=== PATIENT | female | born 1935 | race African-American/Black ===

== ENCOUNTER 2018-01-26 13:40 | Observation (INO) ==
[2018-01-26 14:31] LABS: Basophils % 0.2 %; Eosinophils # 0.1 K/mcL (0.0-0.6); Eosinophils % 1.2 %; Hematocrit 33.5 % (35.3-44.9); Immature Granulocytes % 0.5 % (0-4); Lymphocytes % 10.1 %; Mean Corpuscular HGB Conc 29.9 g/dL (31.6-35.5); Mean Corpuscular Hemoglobin 29.8 pg (28.0-33.3); Mean Corpuscular Volume 99.7 fL (83.0-100.0); Mean Platelet Volume 9.4 fL (9.4-12.4); Monocytes # 0.7 K/mcL (0.0-1.3); Monocytes % 7.2 %; Neutrophils # 8.2 K/mcL (1.6-8.9); Platelet Count 255 K/mcL (140-400); Red Blood Count 3.36 M/mcL (3.82-4.97); Red Cell Distribution Width 15.6 % (11.5-14.5); Segmented Neutrophils % 80.8 %
--- NOTE | 2018-01-26 14:38 | Emergency Department Note ---
Disposition Clinical Impression: Generalized weakness, Palpitations Anemia Qualifiers: Anemia type: unspecified type Qualified Code(s): D64.9 - Anemia, unspecified Disposition: Admitted As Inpatient Condition: Fair Referrals: Jose Alejandro Munoz MD [Primary Care Provider] - Forms: ED Satisfaction Letter Time of Disposition: 16:59 General Adult HPI - General Chief complaint: ED Weakness Stated complaint: afrib, weakness Time Seen by Provider: 01/26/18 13:53 Source: patient, EMS Mode of arrival: EMS Limitations: no limitations Nursing Notes Reviewed: Yes Vital Signs Reviewed: Yes - History of Present Illness HPI Narrative: 82 yo female with history of A. fib, CHF, CAD presents for evaluation of generalized weakness and fast heart rate. Patient was checked on by her home health nursing staff prior to arrival. States the patient's heart rate was fast. Patient denied any symptoms at that time. Patient will health nurses also concerned about the patient's generalized weakness. Patient currently denies any fevers. No chest pain or shortness of breath. Patient denies any abdominal pain. Patient states she has been having lower leg edema which is not new. States that she was recently evaluated by her primary care doctor within the past few days. They are recommending compression stockings. Pain Scale: 0 - Related Data Home Medications Medication Instructions Recorded Confirmed Nitroglycerin [Nitrostat] 0.4 mg SL AD PRN 04/28/15 01/26/18 Atorvastatin [Lipitor] 40 mg PO DAILY 01/26/18 01/26/18 Celecoxib [Celebrex] 200 mg PO DAILY 01/26/18 01/26/18 Furosemide [Lasix] 20 mg PO DAILY 01/26/18 01/26/18 Hydromorphone (Pf) [Hydromorphone 1 each IT AD 01/26/18 01/26/18 Intrathecal Pump] Isosorbide MONOnitrate (24 HR) 30 mg PO DAILY 01/26/18 01/26/18 [Imdur] Levothyroxine Sodium 25 mcg PO DAILY 01/26/18 01/26/18 [Levothyroxine Sodium] Losartan Potassium [Cozaar] 100 mg PO DAILY 01/26/18 01/26/18 Pantoprazole Sodium [Pantoprazole 40 mg PO DAILY 01/26/18 01/26/18 Sodium] Potassium Chloride 20 meq PO DAILY 01/26/18 01/26/18 amLODIPine [Norvasc] 5 mg PO DAILY 01/26/18 01/26/18 hydroCHLOROthiazide 12.5 mg PO DAILY 01/26/18 01/26/18 [Hydrochlorothiazide] Previous Rx's Medication Instructions Recorded Aspirin 81 mg PO DAILY tab.chew 05/01/15 Allergies Allergy/AdvReac Type Severity Reaction Status Date / Time No Known Allergies Allergy Verified 01/26/18 15:04 All systems ED: reviewed and negative except as stated. Constitutional: Denies: fever Cardiovascular: Denies: chest pain Respiratory: Denies: cough, dyspnea Gastrointestinal: Denies: abdominal pain, nausea, vomiting Past Medical History - Past Medical History Source: patient Medical history: Reports: arthritis, CHF, coronary artery disease, hyperlipidemia, myocardial infarction Surgical history: Reports: appendectomy, cholecystectomy, hip replacement, hysterectomy, knee replacement Psychiatric history: Reports: no psych history - Social History Smoking Status: Never smoker Smokeless Tobacco Status: No Alcohol use: Reports: none Drug use: Reports: none Physical Exam - General Limitations: no limitations General appearance: alert, in no apparent distress - Head Head exam: atraumatic, normocephalic, normal inspection - Eye Eye exam: Present: normal appearance, EOMI - ENT ENT exam: normal exam, mucous membranes moist - Neck Neck exam: Present: normal inspection, trachea midline - Chest Chest inspection: Present: normal inspection, symmetric chest wall rise - Respiratory Respiratory exam: Present: normal lung sounds bilaterally. Absent: respiratory distress - Cardiovascular Cardiovascular exam: Present: regular rate, normal rhythm. Absent: systolic murmur - Abdominal Exam Abdominal exam: Present: soft, distention. Absent: guarding, rebound - Extremities Exam Extremities exam: Present: normal inspection, pedal edema (2-3 + PEDAL edema) - Back Exam Back exam: Present: normal inspection - Neurological Exam Neurological exam: Present: alert, oriented X3, CN II-XII intact - Skin Skin exam: Present: warm, dry, intact, normal color Course Course Narrative: Patient is a symptomatic. Patient will get basic cardio pulmonary screening evaluation. Concerns the patient possibly had a run of A. fib prior to arrival. Patient is also appears generally weak. Disposition likely be admission. - Reevaluation(s) Reevaluation #1: Patient seen and examined. Patient's updated on plan of care. Resting currently. Patient states that would be willing to stay. Our concern is that she possibly had a cardiac event earlier today would likely need serial troponins and observation. Time: 16:15 Vital Signs Temperature 98.8 F 01/26/18 13:42 Pulse Rate 92 01/26/18 13:42 Respiratory Rate 16 01/26/18 13:42 Blood Pressure 140/82 01/26/18 13:42 O2 Sat by Pulse Oximetry 98 01/26/18 13:42 Temperature 98.8 F 01/26/18 13:42 Pulse Rate 78 01/26/18 14:54 Respiratory Rate 16 01/26/18 14:54 Blood Pressure 120/85 01/26/18 14:54 O2 Sat by Pulse Oximetry 96 01/26/18 14:54 Oxygen Delivery Oxygen Delivery Room Air Medical Decision Making - MDM Narrative Medical decision making narrative: Patient presents for concerns of generalized weakness as well as possible tachycardia. Noted at the nursing staff at her home residence. Patient's arteries been stable in the ED. Patient currently denies any symptoms. However given the concern the patient's nursing staff at home as well as age with comorbidities. Patient would benefit from further inpatient observation with cardiac monitoring. Patient's chest x-ray shows no acute disease. Urine is negative. Patient will be admitted. Family at bedside agrees with plan of care. - Lab Data Lab results reviewed: Yes I reviewed the patient's lab results. Result diagrams: 01/26/18 14:15 01/26/18 14:15 Lab Results 01/26/18 01/26/18 01/26/18 Range/Units 14:15 14:15 14:15 WBC 10.1 (4.3-11.1) K/mcL RBC 3.36 L (3.82-4.97) M/mcL Hgb 10.0 L (11.5-15.4) g/dL Hct 33.5 L (35.3-44.9) % MCV 99.7 (83.0-100.0) fL MCH 29.8 (28.0-33.3) pg MCHC 29.9 L (31.6-35.5) g/dL RDW 15.6 H (11.5-14.5) % Plt Count 255 (140-400) K/mcL MPV 9.4 (9.4-12.4) fL Immature Gran % 0.5 (0-4) % Seg Neutrophils % 80.8 % Lymphocytes % 10.1 % Monocytes % 7.2 % Eosinophils % 1.2 % Basophils % 0.2 % Neutrophils # 8.2 (1.6-8.9) K/mcL Lymphocytes # 1.0 (0.6-4.6) K/mcL Monocytes # 0.7 (0.0-1.3) K/mcL Eosinophils # 0.1 (0.0-0.6) K/mcL Basophils # 0.0 (0.0-0.2) K/mcL Sodium 142 (136-145) mEq/L Potassium 4.0 (3.5-5.1) mEq/L Chloride 104 (98-107) mEq/L Carbon Dioxide 31 H (23-29) mEq/L BUN 27 H (8-23) mg/dL Creatinine 1.08 (0.60-1.20) mg/dL Est GFR ( Amer) 59 L (> 60) Est GFR (Non-Af Amer) 48 L (> 60) BUN/Creatinine Ratio 25 (6-26) Glucose 160 H (70-105) mg/dL Calculated Osmolality 303 H (280-300) Calcium 9.5 (8.6-10.3) mg/dL Total Bilirubin 0.6 (0.3-1.0) mg/dL AST 16 (13-39) Units/L ALT 15 (7-52) Units/L Alkaline Phosphatase 72 (34-104) Units/L Troponin I 0.03 (< 0.04) ng/mL B-Natriuretic Peptide 153 H (Less than 100) pg/mL Serum Total Protein 5.9 L (6.4-8.9) g/dL Albumin 3.5 (3.5-5.7) g/dL Globulin 2.4 (2.4-3.5) g/dL Albumin/Globulin Ratio 1.5 (1.1-2.2) TSH 3.675 (0.340-5.600) mcIU/mL Urine Color (Yellow) Urine Clarity (Clear) Urine pH (5.0-8.0) pH Units Ur Specific [place] (1.010-1.025) Urine Protein (Neg-Trace) mg/dL Urine Glucose (UA) (Normal) mg/dL Urine Ketones (Negative) mg/dL Urine Blood (Negative) Urine Nitrite (Negative) Urine Bilirubin (Negative) Urine Urobilinogen (Normal) mg/dL Ur Leukocyte Esterase (Negative) Ur Culture Indicated? (NO) 01/26/18 Range/Units 15:51 WBC (4.3-11.1) K/mcL RBC (3.82-4.97) M/mcL Hgb (11.5-15.4) g/dL Hct (35.3-44.9) % MCV (83.0-100.0) fL MCH (28.0-33.3) pg MCHC (31.6-35.5) g/dL RDW (11.5-14.5) % Plt Count (140-400) K/mcL MPV (9.4-12.4) fL Immature Gran % (0-4) % Seg Neutrophils % % Lymphocytes % % Monocytes % % Eosinophils % % Basophils % % Neutrophils # (1.6-8.9) K/mcL Lymphocytes # (0.6-4.6) K/mcL Monocytes # (0.0-1.3) K/mcL Eosinophils # (0.0-0.6) K/mcL Basophils # (0.0-0.2) K/mcL Sodium (136-145) mEq/L Potassium (3.5-5.1) mEq/L Chloride (98-107) mEq/L Carbon Dioxide (23-29) mEq/L BUN (8-23) mg/dL Creatinine (0.60-1.20) mg/dL Est GFR ( Amer) (> 60) Est GFR (Non-Af Amer) (> 60) BUN/Creatinine Ratio (6-26) Glucose (70-105) mg/dL Calculated Osmolality (280-300) Calcium (8.6-10.3) mg/dL Total Bilirubin (0.3-1.0) mg/dL AST (13-39) Units/L ALT (7-52) Units/L Alkaline Phosphatase (34-104) Units/L Troponin I (< 0.04) ng/mL B-Natriuretic Peptide (Less than 100) pg/mL Serum Total Protein (6.4-8.9) g/dL Albumin (3.5-5.7) g/dL Globulin (2.4-3.5) g/dL Albumin/Globulin Ratio (1.1-2.2) TSH (0.340-5.600) mcIU/mL Urine Color Yellow (Yellow) Urine Clarity Clear (Clear) Urine pH 7.0 (5.0-8.0) pH Units Ur Specific [place] 1.007 L (1.010-1.025) Urine Protein Negative (Neg-Trace) mg/dL Urine Glucose (UA) Normal (Normal) mg/dL Urine Ketones Negative (Negative) mg/dL Urine Blood Negative (Negative) Urine Nitrite Negative (Negative) Urine Bilirubin Negative (Negative) Urine Urobilinogen Normal (Normal) mg/dL Ur Leukocyte Esterase Negative (Negative) Ur Culture Indicated? NO (NO) - Radiology Data Radiology results reviewed: Yes I reviewed the patient's radiology results. Chest X-Ray 01/26/18 14:02 IMPRESSION: No acute process. Stable examination. D/ / Daryl Ortiz MD / Daryl Ortiz MD Interpreting Provider: Daryl Ortiz MD - EKG Data EKG #1 EKG attestation: Yes I reviewed and interpreted this EKG. EKG shows normal: sinus rhythm Rate: normal Rhythm: NSR Calvin/QRS: normal T wave inversions noted in: aVR Interpretation: no acute changes, nonspecific ST-T wave changes S.B.ARiddhiR. - S.B.A.RRiddhi Situation: Demographics Background: Presenting Complaint Assessment: Vital Signs, Course and respsone to treatment, Patient/Family Expectation Recommendation: Barrier(s) to disposition, Recommendation based on pending studies, treatments, or consults S.B.A.RRiddhi Report Given to: Dr. Chin BalderasADanilo Repor Time: 16:58 Attestation Statement - Attestation Attestation: Patient was seen with resident physician. I reviewed the history, physical, assessment and plan, and agree with the findings. I also personally evaluated this patient and had [id number] time with this patient. 82-year-old female presents to the emergency department at the request of her home healthcare nurse after finding her to be tachycardic. Patient states that she felt she had a rapid heart rate earlier in the day but is since resolved. She also had some weakness which again has since resolved. She currently states that she is asymptomatic. Review of systems as above remainder negative. His go exam patient is very frail appearing. ENT is unremarkable. Heart regular rhythm and rate. Vitals are stable. Lungs are clear. Abdomen soft nontender. Extremities unremarkable. Neurologically alert and oriented. Skin no obvious rashes. Psych patient appears normal. ED course EKG shows no tachycardia or atrial fibrillation. Labs are largely unremarkable. However considering the patient's age and this history of rapid heart rate we felt admission was indicated. She may have had a run of something that was noted by the home health care nurse and I am a little cautious about sending her back home without further workup. We contacted the hospitalist service agreed to accept the patient. Agree with resident physician assessment and plan.
[2018-01-26 14:50] LABS: Albumin 3.5 g/dL (3.5-5.7); Albumin/Globulin Ratio 1.5 (1.1-2.2); Bilirubin,Total 0.6 mg/dL (0.3-1.0); Calcium 9.5 mg/dL (8.6-10.3); Globulin 2.4 g/dL (2.4-3.5); Total Protein 5.9 g/dL (6.4-8.9); Troponin I 0.03 ng/mL (< 0.04)
[2018-01-26 15:03] LABS: Thyroid Stimulating Hormone 3.675 mcIU/mL (0.340-5.600)
[2018-01-26 16:03] LABS: Bilirubin,Urine Negative (Negative); Blood,Urine Negative (Negative); Clarity,Urine Clear (Clear); Color,Urine Yellow (Yellow); Glucose,Urine (UA) Normal (Normal); Ketones,Urine Negative (Negative); Leukocyte Esterase,Urine Negative (Negative); Nitrite,Urine Negative (Negative); Protein,Urine Negative (Neg-Trace); Specific Gravity,Urine 1.007 (1.010-1.025); Urobilinogen,Urine Normal (Normal)
[2018-01-26] MEDS ORDERED: Naloxone 0.4 MG/ML INJ IVP PRN (17:40)
[2018-01-26] MEDS ORDERED: Nitroglycerin 0.4 MG TAB.SUBL SL PRN (18:08)
--- NOTE | 2018-01-26 18:17 | Internal Med History&Physical ---
<AngellaSony Tejeda - Last Filed: 01/26/18 19:12> Date of Encounter: 01/26/18 Time of Encounter: 17:00 Internal Medicine - H&P: HPI Chief complaint: Heart palpitations Admitted From: Emergency Dept Plans for Post Hospital Care: Home History of present illness: Ms. Rvias is a 82 year old female w/PMH of arthritis, CHF, CAD, HLD, HTN, thyroid disease, and chronic back pain presents from the ED w/CC of heart palpitations and weakness today. Pts. home health nurse found pts. HR >130 and pt. weak this morning. Pt. states that weakness is nothing new and has not worsened. Concern for arrhythmia and not on anticoagulation. Saw PCP several days ago and recommendation was for compression stockings for pedal edema. On exam, pts. sx have resolved w/HR of 73, RR 18, BP 145/75, SpO2 97% on 2L, and temp of 97.4F. Patient denies recent illness, fever, chills, nausea, vomiting, changes in vision, headache, unusual bleeding, cough, chest congestion, abdominal pain, diarrhea, constipation, dizziness, lightheadedness, numbness, tingling, pre-syncope, or syncope. Past Med Surg Social Fam HX - Past Medical History Source: patient, old records reviewed, obtained from family Medical history: arthritis, CHF, coronary artery disease, hyperlipidemia, hypertension, myocardial infarction (Many years ago w/o stent placement), thyroid disease Additional medical history: "HEART PROBLEMS" Psychiatric history: no psych history - Past Surgical History Surgical History: appendectomy, cholecystectomy, hip replacement, hysterectomy, knee replacement Additional surgical history: PATIENT DOES NOT KNOW - Social History Smoking Status: Never smoker Smokeless Tobacco Status: No Alcohol use: none Drug use: none Current living situation: Home, With Family Activity Level: Uses cane/walker Recent Out of Country Travel Within the Last 8 Weeks: No Exposure or Possible Exposure to Illness During Travel: No - Family History Mother Adopted: No Family Member Ethnicity: Non- Living Status: Age at : 85 Cause of : Old age Hx Family Cardiac Disorders: Yes Father History Unknown: Yes Adopted: No Family Member Ethnicity: Non- Living Status: Cause of : Unknown Hx Family Cardiac Disorders: Yes Internal Medicine - H&P: Meds Nitroglycerin [Nitrostat] 0.4 mg SL AD PRN 04/28/15 [History] Aspirin 81 mg PO DAILY tab.chew 05/01/15 [Rx] Atorvastatin [Lipitor] 40 mg PO DAILY 01/26/18 [History] Celecoxib [Celebrex] 200 mg PO DAILY 01/26/18 [History] Furosemide [Lasix] 20 mg PO DAILY 01/26/18 [History] Hydromorphone (Pf) [Hydromorphone Intrathecal Pump] 1 each IT AD 01/26/18 [ History] Isosorbide MONOnitrate (24 HR) [Imdur] 30 mg PO DAILY 01/26/18 [History] Levothyroxine Sodium [Levothyroxine Sodium] 25 mcg PO DAILY 01/26/18 [History] Losartan Potassium [Cozaar] 100 mg PO DAILY 01/26/18 [History] Pantoprazole Sodium [Pantoprazole Sodium] 40 mg PO DAILY 01/26/18 [History] Potassium Chloride 20 meq PO DAILY 01/26/18 [History] amLODIPine [Norvasc] 5 mg PO DAILY 01/26/18 [History] hydroCHLOROthiazide [Hydrochlorothiazide] 12.5 mg PO DAILY 01/26/18 [History] 3 Allergy/AdvReac Type Severity Reaction Status Date / Time No Known Allergies Allergy Verified 01/26/18 15:04 All Systems PM: A 10-system review of systems was performed and is negative for pertinent findings except as documented above in the HPI. - Constitutional Constitutional: as per HPI, fatigue, weakness, no chills, no fever(s), no night sweats - EENT Eyes: no change in vision, no discharge, no pain, no photophobia Ears: no ear discharge, no ear pain, no tinnitus Nose, mouth and throat: no dysphagia, no nasal discharge, no neck pain, no sore throat - Breasts Breasts: as per HPI - Cardiovascular Cardiovascular ROS IM: as per HPI, edema (1+ bilateral pedal edema), irregular heart rhythm, no chest pain, no diaphoresis, no dyspnea, no lightheadedness, no palpitations, no syncope - Respiratory Respiratory: no cough, no dyspnea, no wheezing, no excessive phlegm production - Gastrointestinal Gastrointestinal: no abdominal pain, no diarrhea, no hematemesis, no hematochezia, no melena, no nausea, no vomiting - Genitourinary Genitourinary: no change in urinary stream, no dysuria, no flank pain, no hematuria Menstruation: as per HPI, post hysterectomy - Musculoskeletal Musculoskeletal ROS IM: as per HPI, arthralgias, back pain, no numbness, no tingling - Integumentary Integumentary IM: no rash, no unusual bruising - Neurological Neurological ROS: no confusion, no convulsions, no focal weakness, no numbness, no tingling, no tremor(s) - Psychiatric Psychiatric: as per HPI - Endocrine Endocrine IM: as per HPI - Hematologic/Lymphatic Hematologic/Lymphatic: no easy bruising - Allergic/Immunologic Allergic/Immunologic: as per HPI - Constitutional Vitals: Temp Pulse Resp BP Pulse Ox 97.4 F L 73 18 145/75 97 01/26/18 17:48 01/26/18 17:48 01/26/18 17:48 01/26/18 17:48 01/26/18 17:48 General appearance: Present: cooperative, A&O X 3, pleasant, no acute distress, underweight, answers questions appropriately - Head Head exam: Present: atraumatic, normocephalic - Eye Eye exam: Present: PERRL, conjuntiva pink, sclera anicteric Pupils: Present: PERRL - ENT ENT exam: Present: normal exam - Neck Neck exam general surgery: Present: normal inspection, supple, trachea midline. Absent: lymphadenopathy - Respiratory Respiratory exam: Present: CTAB. Absent: accessory muscle use, rales, rhonchi, wheezes - Cardiovascular Cardiovascular exam: Present: RRR, +S1, +S2. Absent: diastolic murmur, gallop, rubs, systolic murmur - GI/Abdominal GI/Abdominal exam: Present: normal bowel sounds, soft, no peritoneal signs. Absent: distended, tenderness - Rectal Rectal exam: Present: deferred - Additional comments: exam deferred. - Extremities Exam Extremities exam: Present: pedal edema (1+ bilateral pedal edema), warm, radial pulses palpable and symmetrical. Absent: calf tenderness, cyanotic - Back Exam Back exam: Present: normal inspection - Neurological Exam Neurological exam: Present: CN II-XII intact, oriented X3, no focal deficits. Absent: pronater drift, facial droop, speech deficit - Psychiatric Psychiatric exam: Present: normal affect, normal mood - Skin Skin exam: Present: dry, intact Internal Med - H&P Results - Labs CBC & Chem 7: 01/26/18 14:15 01/26/18 14:15 - EKG Data EKG shows normal: sinus rhythm - EKG Data Prior EKG available for review: yes EKG comments: 01/26/18 18:29 EKG dated 01/11/18 shows sinus rhythm with occasional supraventricular premature complexes, marked left axis deviation, minimal voltage criteria for LVH (consider normal variant), anteroseptal myocardial infarction of indeterminate age, and poor R-wave progression. EKG dated 01/26/18 shows sinus rhythm with normal P axis and a rate of 50-99, probable anteroseptal infarct (recent), minimal ST elevation in inferior leads, and lateral leads are also involved. - Diagnostic Studies Chest x-ray Additional comments: Impressions Chest X-Ray 01/26/18 14:02 IMPRESSION: No acute process. Stable examination. D/ / Daryl Ortiz MD / aDryl Ortiz MD Interpreting Provider: Daryl Ortiz MD - Assessment and plan (1) Palpitations Current Visit: Yes Status: Acute Assessment and plan: Acute palpitations today which have resolved on exam. Home health nurse reports HR >130 and increase in weakness. HR now 69 and RRR. Pt. denies hx of atrial fibrillation and is not on anti-coagulation with exception of daily aspirin therapy. Sx resolved in ED. Pts. son agreed w/decision to monitor pt. overnight for recurring palpitations. Continue pts aspirin therapy. Continuous cardiac telemetry. Previous Echocardiogram on 04/29/15 which showed LVEF of 55%, normal left ventricular size and systolic function, evidence of moderate diastolic dysfunction of the left ventricle, moderately enlarged left atrial size, normal right ventricular size and function, normal right atrial size, mild to moderate aortic regurgitation, mild mitral regurgitation, mild tricuspid regurgitation. IVC was not well visualized for estimated RVSP. TR gradient 45 mmHg suggest presence of at least mild pulmonary hypertension. Recommend pt. f/u closely w/ PCP and Cardiology if PCP feels warranted. Pt. discussed w/Dr. Neely who agrees w/plan of care. Pt. is moderate risk for further morbidity and cardiac event based on transient palpitations, weakness, hx of previous ND many years ago, and risk factors. Observation. (2) Generalized weakness Current Visit: Yes Status: Acute Assessment and plan: Acute on chronic generalized weakness. Pt. reports using walker. Also reports severe arthritis and chronic back pain for which she uses indwelling pain pump. Falls/safety precautions and up with assist only. Pressure reduction mattress ordered to address pts. back pain. (3) Anemia Current Visit: Yes Status: Acute Assessment and plan: Acute anemia of unknown etiology w/Hgb of 10.0 on admission. Pt. and son deny unusual bleeding. No recent lab work to compare current results to. Anemia work- up to check Ferritin, B12, Folate, and Iron profile. Monitor H/H and f/u labs. Recommend that pt. f/u w/PCP for f/u blood work and monitoring. Qualifiers: Anemia type: unspecified type Qualified Code(s): D64.9 - Anemia, unspecified (4) HTN (hypertension) Current Visit: Yes Status: Chronic Assessment and plan: Hx of chronic HTN. Monitor pt. and VS. Continue pts. PO Norvasc, hydrochlorothiazide, Imdur, and Cozaar. Qualifiers: Hypertension type: essential hypertension Qualified Code(s): I10 - Essential (primary) hypertension (5) HLD (hyperlipidemia) Current Visit: Yes Status: Chronic Assessment and plan: Hx of chronic HLD. Lipid panel in a.m. labs. Continue pts. PO Lipitor. Qualifiers: Hyperlipidemia type: pure hypercholesterolemia Qualified Code(s): E78.00 - Pure hypercholesterolemia, unspecified; E78.0 - Pure hypercholesterolemia (6) Arthritis Current Visit: Yes Status: Chronic Assessment and plan: Hx of chronic arthritis and back pain. Pt. on indwelling pain pump which will be continued. Pressure reduction mattress ordered. (7) CHF (congestive heart failure) Current Visit: Yes Status: Chronic Assessment and plan: Hx of chronic CHF. BNP 153 on admission. Pt. denies SOB or dyspnea. Bilateral 1 + pitting edema of LEs. Previous Echocardiogram was in 04/29/2015 which showed LVEF of 55%, normal left ventricular size and systolic function, evidence of moderate diastolic dysfunction of the left ventricle, moderately enlarged left atrial size, normal right ventricular size and function, normal right atrial size, mild to moderate aortic regurgitation, mild mitral regurgitation, mild tricuspid regurgitation. IVC was not well visualized for estimated RVSP. TR gradient 45 mmHg suggest presence of at least mild pulmonary hypertension. Continue pts. PO lasix daily. Monitor I&O. 1.5L daily fluid restriction. Continuous cardiac telemetry. Supplemental O2 w/titration and SpO2 monitoring. Recommend pt. f/u closely w/PCP and Cardiology if PCP feels warranted. Qualifiers: Heart failure type: unspecified Heart failure chronicity: unspecified Qualified Code(s): I50.9 - Heart failure, unspecified (8) CAD (coronary artery disease) Current Visit: Yes Status: Chronic Assessment and plan: Hx of chronic CAD and previous ND many years ago. Pts. son reports no stent placement during previous ND. Pt. denies current CP or cardiac sx. Continuous cardiac telemetry. Continue pts. aspirin therapy as well as HTN and HLD medications. Qualifiers: Coronary Disease-Associated Artery/Lesion type: unspecified vessel or lesion type [place] vs. transplanted heart: [place] heart Associated angina: with stable angina Qualified Code(s): I25.118 - Atherosclerotic heart disease of [place] coronary artery with other forms of angina pectoris (9) COPD (chronic obstructive pulmonary disease) Current Visit: Yes Status: Chronic Assessment and plan: Hx of chronic COPD. Stable. Supplemental O2 w/titration and SpO2 monitoring. Qualifiers: Chronic bronchitis type: unspecified Qualified Code(s): J42 - Unspecified chronic bronchitis (10) DVT prophylaxis Current Visit: Yes Status: Acute Assessment and plan: Bilateral anti-embolic stockings for DVT prophylaxis d/t pts. bilateral 1+ pitting pedal edema. Will not use heparin d/t current drop in Hgb to 10.0 of unknown etiology. (11) Thyroid disease Current Visit: Yes Status: Chronic Assessment and plan: Hx of chronic thyroid disease. TSH 3.675 on admission. Continue pts. PO levothyroxine. - Time Spent With Patient Total time spent is greater than 50% in coordination of care (as documented) at patient's floor/unit and/or counseling patient: Greater than 35 minutes <Camron Neely - Last Filed: 01/26/18 19:20> Date of Encounter: 01/26/18 Internal Medicine - H&P: HPI History of present illness: Ms. Rivas is a 82 year old female All Systems PM: A 10-system review of systems was performed and is negative for pertinent findings except as documented above in the HPI. - Constitutional Vitals: Temp Pulse Resp BP Pulse Ox 97.4 F L 73 18 145/75 97 01/26/18 17:48 01/26/18 17:48 01/26/18 17:48 01/26/18 17:48 01/26/18 17:48 Internal Med - H&P Results - Labs CBC & Chem 7: 01/26/18 14:15 01/26/18 14:15 - Attending Attestation I have seen and examined this pt independently. I have discussed with [employer] ATTENDANT Mr Perales regarding the management plan. Agree with the documentation. - Assessment and plan (1) CHF (congestive heart failure) Current Visit: Yes Status: Chronic Qualifiers: Heart failure type: unspecified Heart failure chronicity: unspecified Qualified Code(s): I50.9 - Heart failure, unspecified (2) COPD (chronic obstructive pulmonary disease) Current Visit: Yes Status: Chronic Qualifiers: Chronic bronchitis type: unspecified Qualified Code(s): J42 - Unspecified chronic bronchitis (3) CAD (coronary artery disease) Current Visit: Yes Status: Chronic Qualifiers: Coronary Disease-Associated Artery/Lesion type: unspecified vessel or lesion type [place] vs. transplanted heart: [place] heart Associated angina: with stable angina Qualified Code(s): I25.118 - Atherosclerotic heart disease of [place] coronary artery with other forms of angina pectoris (4) Anemia Current Visit: Yes Status: Acute Qualifiers: Anemia type: unspecified type Qualified Code(s): D64.9 - Anemia, unspecified (5) Generalized weakness Current Visit: Yes Status: Acute (6) Palpitations Current Visit: Yes Status: Acute (7) HTN (hypertension) Current Visit: Yes Status: Chronic Qualifiers: Hypertension type: essential hypertension Qualified Code(s): I10 - Essential (primary) hypertension (8) HLD (hyperlipidemia) Current Visit: Yes Status: Chronic Qualifiers: Hyperlipidemia type: pure hypercholesterolemia Qualified Code(s): E78.00 - Pure hypercholesterolemia, unspecified; E78.0 - Pure hypercholesterolemia (9) Arthritis Current Visit: Yes Status: Chronic (10) DVT prophylaxis Current Visit: Yes Status: Acute (11) Thyroid disease Current Visit: Yes Status: Chronic - Time Spent With Patient Total time spent is greater than 50% in coordination of care (as documented) at patient's floor/unit and/or counseling patient:
[2018-01-26] MEDS: Hydromorphone (Pf) [Hydromorphone Intrathecal Pump IT SCH (19:31)
[2018-01-26 22:01] LABS: Troponin I 0.04 ng/mL (< 0.04)
[2018-01-27 01:53] LABS: Basophils % 0.3 %; Eosinophils # 0.2 K/mcL (0.0-0.6); Eosinophils % 1.9 %; Hematocrit 30.7 % (35.3-44.9); Hemoglobin 9.1 g/dL (11.5-15.4); Immature Granulocytes % 0.4 % (0-4); Lymphocytes % 12.9 %; Mean Corpuscular HGB Conc 29.6 g/dL (31.6-35.5); Mean Corpuscular Hemoglobin 29.7 pg (28.0-33.3); Mean Corpuscular Volume 100.3 fL (83.0-100.0); Mean Platelet Volume 9.3 fL (9.4-12.4); Monocytes # 0.7 K/mcL (0.0-1.3); Monocytes % 8.7 %; Neutrophils # 5.9 K/mcL (1.6-8.9); Platelet Count 211 K/mcL (140-400); Red Blood Count 3.06 M/mcL (3.82-4.97); Red Cell Distribution Width 15.5 % (11.5-14.5); Segmented Neutrophils % 75.8 %
[2018-01-27 02:13] LABS: Alanine Aminotransferase 13 Units/L (7-52); Albumin 3.1 g/dL (3.5-5.7); Albumin/Globulin Ratio 1.5 (1.1-2.2); Alkaline Phosphatase 62 Units/L (34-104); Aspartate Amino Transferase 14 Units/L (13-39); BUN/Creatinine Ratio 28 (6-26); Bilirubin,Total 0.4 mg/dL (0.3-1.0); Blood Urea Nitrogen 28 mg/dL (8-23); Carbon Dioxide 33 mEq/L (23-29); Chloride 106 mEq/L (98-107); Chol/HDL Ratio 2.3 (0-4.9); Cholesterol 125 mg/dL (< 200); Globulin 2.1 g/dL (2.4-3.5); Glucose 131 mg/dL (70-105); HDL Cholesterol 54 mg/dL (40-59); LDL Cholesterol,Calculated 58 mg/dL (0-99); Magnesium 2.1 mg/dL (1.6-2.6); Osmolality,Calculated 303 (280-300); Sodium 143 mEq/L (136-145); Total Protein 5.2 g/dL (6.4-8.9); Triglycerides 63 mg/dL (< 150); eGFR For Non-African Americans 53 (> 60)
[2018-01-27] MEDS ORDERED: Ketorolac 15 MG/ML VIAL IVP ONE (04:21)
[2018-01-27] MEDS: hydroCHLOROthiazide 25 MG TABLET PO SCH (07:59)
[2018-01-27] MEDS: Isosorbide MONOnitrate (24 HR) 30 MG TAB.ER.24H PO SCH (07:59)
[2018-01-27] MEDS: Levothyroxine 25 MCG TABLET PO SCH (07:59)
[2018-01-27] MEDS: Celecoxib 200 MG CAPSULE PO SCH (08:00)
[2018-01-27] MEDS: Furosemide 20 MG TABLET PO SCH (08:00)
[2018-01-27] MEDS: Aspirin 81 MG TAB.CHEW PO SCH (08:00)
[2018-01-27] MEDS: amLODIPine 5 MG TABLET PO SCH (08:01)
--- NOTE | 2018-01-27 10:44 | Internal Med Progress Note ---
Hospitalist Progress Note - Encounter Date of Encounter: 01/27/18 Time of Encounter: 10:30 - Subjective Interval History: No acute events overnight - Exam Vitals: Temp Pulse Resp BP Pulse Ox 97.6 F 85 16 181/106 96 01/27/18 07:36 01/27/18 07:36 01/27/18 07:36 01/27/18 07:36 01/27/18 07:36 Exam: Gen - Awake, alert, oriented x 3, no acute distress HEENT - NCAT, PERRLA, EOMI, hearing grossly intact, oropharynx benign CV - Irregularly irregular Resp - Normal WOB, CTAB, no W/R/R GI - Soft, NT/ND, no masses, normal bowel sounds, no HSP Skin - Warm, dry, no rashes/lesions/ulcers Psych - Normal mood and affect, no depression or anxiety - Assessment and Plan (1) Palpitations Current Visit: Yes Status: Acute Assessment and Plan: Acute palpitations today which have resolved on exam. Home health nurse reports HR >130 and increase in weakness. HR now 69 and RRR. Pt. denies hx of atrial fibrillation and is not on anti-coagulation with exception of daily aspirin therapy. Sx resolved in ED. Pts. son agreed w/decision to monitor pt. overnight for recurring palpitations. Continue pts aspirin therapy. Continuous cardiac telemetry. Previous Echocardiogram on 04/29/15 which showed LVEF of 55%, normal left ventricular size and systolic function, evidence of moderate diastolic dysfunction of the left ventricle, moderately enlarged left atrial size, normal right ventricular size and function, normal right atrial size, mild to moderate aortic regurgitation, mild mitral regurgitation, mild tricuspid regurgitation. IVC was not well visualized for estimated RVSP. TR gradient 45 mmHg suggest presence of at least mild pulmonary hypertension. 01/27. Troponins negative. Will repeat 2D echo and follow up. Plan for discharge if no acute findings (2) CHF (congestive heart failure) Current Visit: Yes Status: Chronic Assessment and Plan: Hx of chronic CHF. BNP 153 on admission. Pt. denies SOB or dyspnea. Bilateral 1 + pitting edema of LEs. Continue po lasix. No acute exacerbation (3) COPD (chronic obstructive pulmonary disease) Current Visit: Yes Status: Chronic Assessment and Plan: Hx of chronic COPD. Stable. Supplemental O2 w/titration and SpO2 monitoring. (4) CAD (coronary artery disease) Current Visit: Yes Status: Chronic Assessment and Plan: Hx of chronic CAD and previous ND many years ago. Pts. son reports no stent placement during previous ND. Pt. denies current CP or cardiac sx. Continuous cardiac telemetry. Continue pts. aspirin therapy as well as HTN and HLD medications. (5) Anemia Current Visit: Yes Status: Acute Assessment and Plan: Acute anemia of unknown etiology w/Hgb of 10.0 on admission. Pt. and son deny unusual bleeding. No recent lab work to compare current results to. Anemia work- up to check Ferritin, B12, Folate, and Iron profile. Monitor H/H and f/u labs. Recommend that pt. f/u w/PCP for f/u blood work and monitoring. (6) Generalized weakness Current Visit: Yes Status: Acute Assessment and Plan: Acute on chronic generalized weakness. Pt. reports using walker. Also reports severe arthritis and chronic back pain for which she uses indwelling pain pump. Falls/safety precautions and up with assist only. Pressure reduction mattress ordered to address pts. back pain. (7) HTN (hypertension) Current Visit: Yes Status: Chronic Assessment and Plan: Hx of chronic HTN. Monitor pt. and VS. Continue pts. PO Norvasc, hydrochlorothiazide, Imdur, and Cozaar. (8) HLD (hyperlipidemia) Current Visit: Yes Status: Chronic Assessment and Plan: Hx of chronic HLD. Lipid panel in a.m. labs. Continue pts. PO Lipitor. (9) Arthritis Current Visit: Yes Status: Chronic Assessment and Plan: Hx of chronic arthritis and back pain. Pt. on indwelling pain pump which will be continued. Pressure reduction mattress ordered. (10) Thyroid disease Current Visit: Yes Status: Chronic Assessment and Plan: Hx of chronic thyroid disease. TSH 3.675 on admission. Continue pts. PO levothyroxine. (11) DVT prophylaxis Current Visit: Yes Status: Acute Assessment and Plan: Bilateral anti-embolic stockings for DVT prophylaxis d/t pts. bilateral 1+ pitting pedal edema. Will not use heparin d/t current drop in Hgb to 10.0 of unknown etiology. - Time Spent with Patient Total time spent is greater than 50% in coordination of care (as documented) at patient's floor/unit and/or counseling patient: Internal Medicine: Result - Labs CBC & Chem 7: 01/27/18 01:02 01/27/18 01:02 Labs: Short CBC 01/27/18 Range/Units 01:02 WBC 7.8 (4.3-11.1) K/mcL Hgb 9.1 L (11.5-15.4) g/dL Hct 30.7 L (35.3-44.9) % Plt Count 211 (140-400) K/mcL Neutrophils # 5.9 (1.6-8.9) K/mcL BMP 01/27/18 01:02 Sodium 143 Potassium 4.0 Chloride 106 Carbon Dioxide 33 H BUN 28 H Creatinine 0.99 Glucose 131 H Calcium 9.0 Cardiac Enzymes 01/26/18 01/27/18 Range/Units 18:59 01:02 Troponin I 0.04 H* 0.03 (< 0.04) ng/mL Liver Function 01/27/18 Range/Units 01:02 Total Bilirubin 0.4 (0.3-1.0) mg/dL AST 14 (13-39) Units/L ALT 13 (7-52) Units/L Alkaline Phosphatase 62 (34-104) Units/L Albumin 3.1 L (3.5-5.7) g/dL Consult Discharge Plan - Plan Referrals: Jose Alejandro Munoz MD [Primary Care Provider] - (2) CHF (congestive heart failure) Qualifiers: Heart failure type: unspecified Heart failure chronicity: unspecified Qualified Code(s): I50.9 - Heart failure, unspecified (3) COPD (chronic obstructive pulmonary disease) Qualifiers: Chronic bronchitis type: unspecified (4) CAD (coronary artery disease) Qualifiers: Coronary Disease-Associated Artery/Lesion type: unspecified vessel or lesion type [place] vs. transplanted heart: [place] heart Associated angina: with stable angina Qualified Code(s): I25.118 - Atherosclerotic heart disease of [place] coronary artery with other forms of angina pectoris (5) Anemia Qualifiers: Anemia type: unspecified type Qualified Code(s): D64.9 - Anemia, unspecified (7) HTN (hypertension) Qualifiers: Hypertension type: essential hypertension Qualified Code(s): I10 - Essential (primary) hypertension (8) HLD (hyperlipidemia) Qualifiers: Hyperlipidemia type: pure hypercholesterolemia Qualified Code(s): E78.00 - Pure hypercholesterolemia, unspecified; E78.0 - Pure hypercholesterolemia
[2018-01-27] MEDS: Ketorolac 30 MG/ML VIAL IVP PRN (12:10)
[2018-01-27] MEDS: Hydromorphone (Pf) [Hydromorphone Intrathecal Pump IT SCH (17:47)
[2018-01-28 04:46] LABS: Basophils % 0.2 %; Eosinophils # 0.3 K/mcL (0.0-0.6); Eosinophils % 2.9 %; Hematocrit 30.7 % (35.3-44.9); Hemoglobin 8.9 g/dL (11.5-15.4); Immature Granulocytes % 0.5 % (0-4); Lymphocytes # 1.2 K/mcL (0.6-4.6); Lymphocytes % 13.7 %; Mean Corpuscular Hemoglobin 28.7 pg (28.0-33.3); Mean Platelet Volume 9.3 fL (9.4-12.4); Monocytes # 0.7 K/mcL (0.0-1.3); Monocytes % 7.4 %; Neutrophils # 6.7 K/mcL (1.6-8.9); Platelet Count 185 K/mcL (140-400); Red Cell Distribution Width 15.8 % (11.5-14.5); Segmented Neutrophils % 75.3 %
[2018-01-28 05:04] LABS: Albumin 3.1 g/dL (3.5-5.7); Albumin/Globulin Ratio 1.5 (1.1-2.2); Bilirubin,Total 0.5 mg/dL (0.3-1.0); Calcium 9.1 mg/dL (8.6-10.3); Globulin 2.1 g/dL (2.4-3.5); Potassium 4.3 mEq/L (3.5-5.1); Total Protein 5.2 g/dL (6.4-8.9)
[2018-01-28 07:40] VITALS: BP 169/74
[2018-01-28] MEDS: Celecoxib 200 MG CAPSULE PO SCH (08:40)
[2018-01-28] MEDS: Levothyroxine 25 MCG TABLET PO SCH (08:40)
[2018-01-28] MEDS: Ketorolac 30 MG/ML VIAL IVP PRN (08:40)
[2018-01-28] MEDS: Aspirin 81 MG TAB.CHEW PO SCH (08:41)
[2018-01-28] MEDS: hydroCHLOROthiazide 25 MG TABLET PO SCH (08:41)
[2018-01-28] MEDS: Furosemide 20 MG TABLET PO SCH (08:41)
[2018-01-28] MEDS: Isosorbide MONOnitrate (24 HR) 30 MG TAB.ER.24H PO SCH (08:41)
[2018-01-28] MEDS: amLODIPine 5 MG TABLET PO SCH (08:41)
[2018-01-28 10:28] LABS: Estimated Average Glucose 108 mg/dl; Hemoglobin A1C 5.4 %
--- NOTE | 2018-01-28 12:48 | Discharge Summary ---
Orders not resulted at time of discharge: Pending orders 01/29/18 04:00 Complete Blood Count [HEME] AM 0400 Comprehensive Metabolic Panel AM 0400 Date of Encounter: 01/28/18 Time of Encounter: 12:30 - Discharge Diagnosis (1) Palpitations Priority: Primary Status: Acute Assessment and Plan: 82 year old female w/PMH of arthritis, CHF, CAD, HLD, HTN, thyroid disease, and chronic back pain presents from the ED w/CC of heart palpitations and weakness today. Pts. home health nurse found pts. HR >130 and pt. weak this morning. Pt. states that weakness is nothing new and has not worsened. She was assessed with tachycardia and palpitations rule out acute coronary syndrome. She had 3 sets of troponins which came back within normal limits. She also had a normal 2d echo with no wall motion abnormalities. EKG was sinus rhythm and heart rate was controlled during her visit and etiology may have been 2/2 to dehydration. She was discharged in a stable condition (2) CHF (congestive heart failure) Priority: Secondary Status: Chronic Assessment and Plan: Hx of chronic CHF. BNP 153 on admission. Pt. denies SOB or dyspnea. Bilateral 1 + pitting edema of LEs. Continue po lasix. No acute exacerbation Qualifiers: Heart failure type: unspecified Heart failure chronicity: unspecified Qualified Code(s): I50.9 - Heart failure, unspecified (3) COPD (chronic obstructive pulmonary disease) Priority: Secondary Status: Chronic Assessment and Plan: Hx of chronic COPD. Stable. Supplemental O2 w/titration and SpO2 monitoring. Qualifiers: Chronic bronchitis type: unspecified Qualified Code(s): J42 - Unspecified chronic bronchitis (4) CAD (coronary artery disease) Priority: Secondary Status: Chronic Assessment and Plan: Hx of chronic CAD and previous FL many years ago. Pts. son reports no stent placement during previous FL. Pt. denies current CP or cardiac sx. Continuous cardiac telemetry. Continue pts. aspirin therapy as well as HTN and HLD medications. Qualifiers: Coronary Disease-Associated Artery/Lesion type: unspecified vessel or lesion type [place] vs. transplanted heart: [place] heart Associated angina: with stable angina Qualified Code(s): I25.118 - Atherosclerotic heart disease of [place] coronary artery with other forms of angina pectoris (5) Anemia Priority: Secondary Status: Acute Assessment and Plan: Acute anemia of unknown etiology w/Hgb of 10.0 on admission. Pt. and son deny unusual bleeding. No recent lab work to compare current results to. Anemia work- up to check Ferritin, B12, Folate, and Iron profile. Monitor H/H and f/u labs. Recommend that pt. f/u w/PCP for f/u blood work and monitoring. Qualifiers: Anemia type: unspecified type Qualified Code(s): D64.9 - Anemia, unspecified (6) Generalized weakness Priority: Secondary Status: Acute Assessment and Plan: Acute on chronic generalized weakness. Pt. reports using walker. Also reports severe arthritis and chronic back pain for which she uses indwelling pain pump. Falls/safety precautions and up with assist only. Pressure reduction mattress ordered to address pts. back pain. (7) HTN (hypertension) Priority: Secondary Status: Chronic Qualifiers: Hypertension type: essential hypertension Qualified Code(s): I10 - Essential (primary) hypertension (8) HLD (hyperlipidemia) Priority: Secondary Status: Chronic Qualifiers: Hyperlipidemia type: pure hypercholesterolemia Qualified Code(s): E78.00 - Pure hypercholesterolemia, unspecified; E78.0 - Pure hypercholesterolemia (9) Arthritis Priority: Secondary Status: Chronic (10) Thyroid disease Priority: Secondary Status: Chronic (11) DVT prophylaxis Priority: Secondary Status: Acute Hospital course: Ms. Rivas is a 82 year old female - Time Spent with Patient Total time spent providing and/or coordinating discharge services: - Discharge Medications Home Medications: Nitroglycerin [Nitrostat] 0.4 mg SL AD PRN 04/28/15 [History] Aspirin 81 mg PO DAILY tab.chew 05/01/15 [Rx] Atorvastatin [Lipitor] 40 mg PO DAILY 01/26/18 [History] Celecoxib [Celebrex] 200 mg PO DAILY 01/26/18 [History] Furosemide [Lasix] 20 mg PO DAILY 01/26/18 [History] Hydromorphone (Pf) [Hydromorphone Intrathecal Pump] 1 each IT AD 01/26/18 [ History] Isosorbide MONOnitrate (24 HR) [Imdur] 30 mg PO DAILY 01/26/18 [History] Levothyroxine Sodium 25 mcg PO DAILY 01/26/18 [History] Losartan Potassium [Cozaar] 100 mg PO DAILY 01/26/18 [History] Pantoprazole Sodium 40 mg PO DAILY 01/26/18 [History] Potassium Chloride 20 meq PO DAILY 01/26/18 [History] amLODIPine [Norvasc] 5 mg PO DAILY 01/26/18 [History] hydroCHLOROthiazide [Hydrochlorothiazide] 12.5 mg PO DAILY 01/26/18 [History] Allergies/Adverse Reactions: 3 Allergy/AdvReac Type Severity Reaction Status Date / Time No Known Allergies Allergy Verified 01/26/18 15:04 Date of admission: 01/26/18 17:08 Primary care physician: Jose Alejandro Munoz MD Consults: 01/26/18 17:43 Consult to [employer] [CONS] Routine Reason for SW Consult: Please assess patient for possible home needs for post -discharge planning. 01/27/18 10:44 Consult to Physical Therapy [CONS] Routine Comment: Evaluate, develop and implement POC Reason for Consult: weakness Does patient have active BEDREST order?: No Is patient medically & hemodynamically stable?: Yes Patient assessed for mobility or mobilized this visit?: No 01/28/18 10:11 Consult to Occupational Therapy [CONS] Routine Comment: Evaluate, develop and implement POC Reason for Consult: weakness. D/C planning Does patient have active BEDREST order?: No Is patient medically & hemodynamically stable?: Yes - Constitutional Vitals: Temp Pulse Resp BP Pulse Ox 98.3 F 79 15 169/74 96 01/28/18 07:39 01/28/18 07:39 01/28/18 07:39 01/28/18 07:39 01/28/18 07:39 General appearance: Present: cooperative, A&O X 3, pleasant, no acute distress, underweight, answers questions appropriately Exam: Gen - Awake, alert, oriented x 3, no acute distress HEENT - NCAT, PERRLA, EOMI, hearing grossly intact, oropharynx benign CV - Irregularly irregular Resp - Normal WOB, CTAB, no W/R/R GI - Soft, NT/ND, no masses, normal bowel sounds, no HSP Skin - Warm, dry, no rashes/lesions/ulcers Psych - Normal mood and affect, no depression or anxiety - Head Head exam: Present: atraumatic, normocephalic - Eye Eye exam: Present: PERRL, conjuntiva pink, sclera anicteric Pupils: Present: PERRL - Neck Neck exam general surgery: Present: supple, trachea midline. Absent: lymphadenopathy - Respiratory Respiratory exam: Present: CTAB. Absent: accessory muscle use, rales, rhonchi, wheezes - Cardiovascular Cardiovascular exam: Present: diastolic murmur, irregular rhythm, +S1, +S2. Absent: gallop, rubs, systolic murmur - GI/Abdominal GI/Abdominal exam: Present: normal bowel sounds, soft, no peritoneal signs. Absent: distended, tenderness - Extremities Exam Extremities exam: Present: warm, radial pulses palpable and symmetrical. Absent : calf tenderness, cyanotic, pedal edema - Neurological Exam Neurological exam: Present: CN II-XII intact, oriented X3, no focal deficits. Absent: pronater drift, facial droop, speech deficit - Skin Skin exam: Present: dry, intact - Patient Status Disposition: Home, Self-Care Condition: Fair - Discharge Instructions Instructions: Weakness (GEN) Follow Up With: Jose Alejandro Munoz MD [Primary Care Provider] - 02/12/18 2:00 pm - VTE Documentation of Mechanical Device: Graduated compression elastic hosiery
--- NOTE | 2018-01-28 13:44 | Physician Discharge Referral ---
Home Health/Hosp Referral Info Transfer to: Home Health - Diagnosis (1) CAD (coronary artery disease) Priority: Primary Status: Chronic (2) Palpitations Priority: Primary Status: Acute (3) CHF (congestive heart failure) Priority: Secondary Status: Chronic (4) COPD (chronic obstructive pulmonary disease) Priority: Secondary Status: Chronic (5) Anemia Priority: Secondary Status: Acute (6) Generalized weakness Priority: Secondary Status: Acute (7) HTN (hypertension) Status: Chronic (8) HLD (hyperlipidemia) Status: Chronic (9) Arthritis Status: Chronic (10) Thyroid disease Status: Chronic (11) DVT prophylaxis Status: Acute - Respiratory Orders Smoking Cessation: Smoking cessation has been advised. For more information, call the [employer] Tobacco Quit Line at 1-692-SGKQ-NOW. - Diet/Nutrition Diet/Nutrition Orders: Cardiac - Activity Activity Orders: Ambulate - Services Needed Following services are medically necessary services: Nursing, Home Health Aide, Physical Therapy - Transfer Medications Home Medications: Nitroglycerin [Nitrostat] 0.4 mg SL AD PRN 04/28/15 [History] Aspirin 81 mg PO DAILY tab.chew 05/01/15 [Rx] Atorvastatin [Lipitor] 40 mg PO DAILY 01/26/18 [History] Celecoxib [Celebrex] 200 mg PO DAILY 01/26/18 [History] Furosemide [Lasix] 20 mg PO DAILY 01/26/18 [History] Hydromorphone (Pf) [Hydromorphone Intrathecal Pump] 1 each IT AD 01/26/18 [ History] Isosorbide MONOnitrate (24 HR) [Imdur] 30 mg PO DAILY 01/26/18 [History] Levothyroxine Sodium 25 mcg PO DAILY 01/26/18 [History] Losartan Potassium [Cozaar] 100 mg PO DAILY 01/26/18 [History] Pantoprazole Sodium 40 mg PO DAILY 01/26/18 [History] Potassium Chloride 20 meq PO DAILY 01/26/18 [History] amLODIPine [Norvasc] 5 mg PO DAILY 01/26/18 [History] hydroCHLOROthiazide [Hydrochlorothiazide] 12.5 mg PO DAILY 01/26/18 [History] Allergies/Adverse Reactions: 3 Allergy/AdvReac Type Severity Reaction Status Date / Time No Known Allergies Allergy Verified 01/26/18 15:04 Certification: Further, I certify that my clinical findings support that this patient is homebound (i.e. absences from home require considerable and taxing effort and are for medical reasons or scientology services or infrequently or short duration when for other reasons) because: Homebound Reason: Patient requires assistance of a person or device to safely leave home Attestation: My signature below is to certify that this patient is under my care and that I, or nurse practitioner, or a physician's assistant hall director working with me, has a face-to -face encounter with this patient.
[2018-01-28] MEDS: Hydromorphone (Pf) [Hydromorphone Intrathecal Pump IT SCH (14:05)
--- NOTE | 2018-01-28 15:12 | Electrocardiograph Report ---
[address] [place], [place] [address] Test Date: 2018-01-26 Pat Name: Iman Rivas Department: Room: 3B32 Gender: F [employer] C[employer]: : [id number] Requested By: Mitchell Law Order Number: [id number] Reading MD: Clinton Cueto Measurements Intervals Lane Rate: 85 P: 51 HI: 128 QRS: 213 QRSD: 107 T: 60 QT: 365 QTc: 434 Interpretive Statements Sinus rhythm LATE R WAVE PROGRESSION INFEROLATERAL ST DEPRESSION Electronically Signed On 01-28-2018 15:11:16 EDT by Clinton Cueto
== END 2018-01-28 15:16 | disposition home or self-care (01) ==
LOC: EMEROOARM 13:40 → 3BNU 13:40
PROVIDERS: ADMIT Internal Medicine; ATTEND Internal Medicine

== ENCOUNTER 2018-03-30 18:29 | Inpatient (IN) ==
[2018-03-30] MEDS ORDERED: Ipratropium/Albuterol Neb 3 ML IH ONE (18:38)
--- NOTE | 2018-03-30 18:40 | Emergency Department Note ---
Disposition Clinical Impression: Pneumonia Qualifiers: Pneumonia type: due to unspecified organism Laterality: left Lung location: lower lobe of lung Qualified Code(s): J18.1 - Lobar pneumonia, unspecified organism Disposition: Admitted As Inpatient Condition: Good Referrals: NONE,PCP [Primary Care Provider] - Forms: ED Satisfaction Letter SOB HPI - General Chief Complaint: ED Shortness of Breath/Dyspnea Stated Complaint: shortness of breath Time Seen by Provider: 03/30/18 18:30 Source: EMS Nursing Notes Reviewed: Yes Vital Signs Reviewed: Yes - History of Present Illness 82-year-old female presents emergency department with concern for shortness of breath. Patient states that she feels as if she has pneumonia. Reports that she feels this way every time to outside staff. Brought in via EMS. On oxygen at her nursing facility. Has been on 2 L to maintain oxygen saturation 98%. - Related Data Home Medications Medication Instructions Recorded Confirmed Nitroglycerin [Nitrostat] 0.4 mg SL AD PRN 04/28/15 03/30/18 Atorvastatin [Lipitor] 40 mg PO DAILY 01/26/18 03/30/18 Furosemide [Lasix] 20 mg PO DAILY 01/26/18 03/30/18 Isosorbide MONOnitrate (24 HR) 30 mg PO DAILY 01/26/18 03/30/18 [Imdur] Levothyroxine Sodium 25 mcg PO DAILY 01/26/18 03/30/18 Losartan Potassium [Cozaar] 100 mg PO DAILY 01/26/18 03/30/18 Pantoprazole Sodium 40 mg PO DAILY 01/26/18 03/30/18 Previous Rx's Medication Instructions Recorded Aspirin 81 mg PO DAILY tab.chew 05/01/15 Allergies Allergy/AdvReac Type Severity Reaction Status Date / Time No Known Allergies Allergy Verified 03/30/18 18:38 All systems ED: reviewed and negative except as stated. Review of Systems: As Per HPI Constitutional: Denies: fever Cardiovascular: Denies: chest pain Respiratory: Reports: cough, dyspnea Gastrointestinal: Denies: abdominal pain, nausea, vomiting Musculoskeletal: Denies: back pain Past Medical History - Past Medical History Medical history: Reports: arthritis, CHF, coronary artery disease, hyperlipidemia, myocardial infarction Surgical history: Reports: appendectomy, cholecystectomy, hip replacement, hysterectomy, knee replacement Psychiatric history: Reports: no psych history - Social History Smoking Status: Never smoker Smokeless Tobacco Status: No Alcohol use: Reports: none Drug use: Reports: none Physical Exam - General General appearance: in no apparent distress - Head Head exam: normocephalic - Eye Eye exam: Present: EOMI - ENT ENT exam: mucous membranes moist - Neck Neck exam: Present: trachea midline - Chest Chest inspection: Present: symmetric chest wall rise - Respiratory Respiratory exam: Present: other (Decreased chest excursion). Absent: respiratory distress, accessory muscle use - Cardiovascular Cardiovascular exam: Present: regular rate, normal rhythm, normal heart sounds - Abdominal Exam Abdominal exam: Present: soft, Non-Tender. Absent: distention, guarding, rebound, rigidity - Extremities Exam Extremities exam: Present: normal capillary refill - Back Exam Back exam: Present: full ROM - Neurological Exam Neurological exam: Present: alert - Psychiatric Psychiatric exam: Present: flat affect Course Vital Signs Temperature 98.6 F 03/30/18 18:33 Pulse Rate 79 03/30/18 18:33 Respiratory Rate 16 03/30/18 18:33 Blood Pressure 154/71 03/30/18 18:33 O2 Sat by Pulse Oximetry 99 03/30/18 18:33 Temperature 98.6 F 03/30/18 18:33 Pulse Rate 77 03/30/18 20:02 Respiratory Rate 14 03/30/18 20:02 Blood Pressure 144/69 03/30/18 20:02 O2 Sat by Pulse Oximetry 100 03/30/18 20:02 Oxygen Delivery Oxygen Delivery Aerosol Mask Shortness of Breath/Dyspnea - [facility] Narrative Medical decision making narrative: 82-year-old female presents emergency department with concern for feeling as if she has pneumonia. Patient hemodynamically stable not in acute distress. Vital signs are within normal limits. She is afebrile here. However, obtained a chest x-ray. Reveals concern for left lower lobe infiltrate reported to consider aspiration per radiology. Patient at high risk for aspiration pneumonia as she appears very debilitated. Patient was given vancomycin, Zosyn, Levaquin for coverage for hospital-associated pneumonia. Patient has elevated troponin, but his 0.05. Has been higher in the past. Patient has not reported any chest pain. EKG did not reveal any ischemic changes. We will only provide 1 L of normal saline this patient. She is not appear edematous, no rales on lung exam, but does have history of congestive heart failure. Do not want to fluid overload her. Hemoglobin has been trending downward. Currently 8.2. Was 8.9 2 months ago. Not reporting any blood in her stool. Not on any blood thinning medications. Would recommend to continue monitoring this during her hospital stay. Discussed admission with son at bedside. He agreed with plan. Spoke with Dr. Hamm who agreed to accept the patient for admission. Vital Signs Temperature 98.6 F 03/30/18 18:33 Pulse Rate 79 03/30/18 18:33 Respiratory Rate 16 03/30/18 18:33 Blood Pressure 154/71 03/30/18 18:33 O2 Sat by Pulse Oximetry 99 03/30/18 18:33 Temperature 98.6 F 03/30/18 18:33 Pulse Rate 77 03/30/18 20:02 Respiratory Rate 14 03/30/18 20:02 Blood Pressure 144/69 03/30/18 20:02 O2 Sat by Pulse Oximetry 100 03/30/18 20:02 Oxygen Delivery Oxygen Delivery Aerosol Mask Chest X-Ray 03/30/18 18:38 IMPRESSION: Dense left lower lobe infiltrate and likely fusion. Pneumonia or aspiration should be considered. D/ / 03/30/2018 19:20:21 Andie Wilson MD / bcarter Interpreting Provider: Andie Wilson MD - Lab Data Result diagrams: 03/30/18 19:30 03/30/18 19:08 Lab Results 03/30/18 03/30/18 03/30/18 Range/Units 19:06 19:08 19:08 WBC (4.3-11.1) K/mcL RBC (3.82-4.97) M/mcL Hgb (11.5-15.4) g/dL Hct (35.3-44.9) % MCV (83.0-100.0) fL MCH (28.0-33.3) pg MCHC (31.6-35.5) g/dL RDW (11.5-14.5) % Plt Count (140-400) K/mcL MPV (9.4-12.4) fL Immature Gran % (0-4) % Seg Neutrophils % % Lymphocytes % % Monocytes % % Eosinophils % % Basophils % % Neutrophils # (1.6-8.9) K/mcL Lymphocytes # (0.6-4.6) K/mcL Monocytes # (0.0-1.3) K/mcL Eosinophils # (0.0-0.6) K/mcL Basophils # (0.0-0.2) K/mcL Sodium 140 (136-145) mEq/L Potassium 4.3 (3.5-5.1) mEq/L Chloride 100 (98-107) mEq/L Carbon Dioxide 33 H (23-29) mEq/L BUN 33 H (8-23) mg/dL Creatinine 0.81 (0.60-1.20) mg/dL Est GFR ( Amer) > 60 (> 60) Est GFR (Non-Af Amer) > 60 (> 60) BUN/Creatinine Ratio 41 H (6-26) Glucose 117 H (70-105) mg/dL Calculated Osmolality 298 (280-300) Lactic Acid 1.4 (0.5-2.2) mmol/L Calcium 9.3 (8.6-10.3) mg/dL Troponin I 0.05 H* (< 0.04) ng/mL Specimen Rejected Clotted 03/30/18 Range/Units 19:30 WBC 9.9 (4.3-11.1) K/mcL RBC 3.21 L (3.82-4.97) M/mcL Hgb 8.2 L (11.5-15.4) g/dL Hct 28.3 L (35.3-44.9) % MCV 88.2 (83.0-100.0) fL MCH 25.5 L (28.0-33.3) pg MCHC 29.0 L (31.6-35.5) g/dL RDW 18.2 H (11.5-14.5) % Plt Count 288 (140-400) K/mcL MPV 9.2 L (9.4-12.4) fL Immature Gran % 0.4 (0-4) % Seg Neutrophils % 77.2 % Lymphocytes % 11.9 % Monocytes % 7.3 % Eosinophils % 2.7 % Basophils % 0.5 % Neutrophils # 7.6 (1.6-8.9) K/mcL Lymphocytes # 1.2 (0.6-4.6) K/mcL Monocytes # 0.7 (0.0-1.3) K/mcL Eosinophils # 0.3 (0.0-0.6) K/mcL Basophils # 0.1 (0.0-0.2) K/mcL Sodium (136-145) mEq/L Potassium (3.5-5.1) mEq/L Chloride (98-107) mEq/L Carbon Dioxide (23-29) mEq/L BUN (8-23) mg/dL Creatinine (0.60-1.20) mg/dL Est GFR ( Amer) (> 60) Est GFR (Non-Af Amer) (> 60) BUN/Creatinine Ratio (6-26) Glucose (70-105) mg/dL Calculated Osmolality (280-300) Lactic Acid (0.5-2.2) mmol/L Calcium (8.6-10.3) mg/dL Troponin I (< 0.04) ng/mL Specimen Rejected - EKG Data EKG attestation: Yes I reviewed and interpreted this EKG. EKG results narrative: 18:45 Heart rate 77 bpm, MO interval 134 ms, QRS duration 84 ms, QT 353 ms, QTC 400 ms, but states deviation. Sinus rhythm ventricular rate of 77 beats for minute. No ischemic ST changes on this EKG.
[2018-03-30] MEDS ORDERED: Piperacillin/Tazobactam 3.375 GM in Water for inj. (sterile) 20 ML 20 ML IVP ONE (19:19)
[2018-03-30] MEDS ORDERED: Levofloxacin 750 MG/150 ML 750 MG/150 ML BAG IVPB ONE (19:19)
[2018-03-30] MEDS ORDERED: 0.9 % Sodium Chloride 1,000 ML IVC ONE (19:21)
--- NOTE | 2018-03-30 19:42 | Emergency Department Note ---
Disposition Clinical Impression: Pneumonia Qualifiers: Pneumonia type: due to unspecified organism Laterality: left Lung location: lower lobe of lung Qualified Code(s): J18.1 - Lobar pneumonia, unspecified organism Disposition: Admitted As Inpatient Forms: ED Satisfaction Letter General Adult HPI - General Chief complaint: ED Shortness of Breath/Dyspnea Stated complaint: shortness of breath Time Seen by Provider: 03/30/18 18:30 Source: EMS - History of Present Illness Pain Scale: 4 - Related Data Home Medications Medication Instructions Recorded Confirmed Nitroglycerin [Nitrostat] 0.4 mg SL AD PRN 04/28/15 03/30/18 Atorvastatin [Lipitor] 40 mg PO DAILY 01/26/18 03/30/18 Furosemide [Lasix] 20 mg PO DAILY 01/26/18 03/30/18 Isosorbide MONOnitrate (24 HR) 30 mg PO DAILY 01/26/18 03/30/18 [Imdur] Levothyroxine Sodium 25 mcg PO DAILY 01/26/18 03/30/18 Losartan Potassium [Cozaar] 100 mg PO DAILY 01/26/18 03/30/18 Pantoprazole Sodium 40 mg PO DAILY 01/26/18 03/30/18 Previous Rx's Medication Instructions Recorded Aspirin 81 mg PO DAILY tab.chew 05/01/15 Allergies Allergy/AdvReac Type Severity Reaction Status Date / Time No Known Allergies Allergy Verified 03/30/18 18:38 Past Medical History - Past Medical History Medical history: Reports: arthritis, CHF, coronary artery disease, hyperlipidemia, myocardial infarction Surgical history: Reports: appendectomy, cholecystectomy, hip replacement, hysterectomy, knee replacement Psychiatric history: Reports: no psych history - Social History Smoking Status: Never smoker Smokeless Tobacco Status: No Alcohol use: Reports: none Drug use: Reports: none Physical Exam - General General appearance: in no apparent distress Course Vital Signs Temperature 98.6 F 03/30/18 18:33 Pulse Rate 79 03/30/18 18:33 Respiratory Rate 16 03/30/18 18:33 Blood Pressure 154/71 03/30/18 18:33 O2 Sat by Pulse Oximetry 99 03/30/18 18:33 Temperature 98.6 F 03/30/18 18:33 Pulse Rate 79 03/30/18 18:33 Respiratory Rate 16 03/30/18 18:33 Blood Pressure 154/71 03/30/18 18:33 O2 Sat by Pulse Oximetry 99 03/30/18 18:33 Oxygen Delivery Oxygen Delivery Nasal Cannula Medical Decision Making - Lab Data Lab Results 03/30/18 Range/Units 19:06 Specimen Rejected Clotted Attestation Statement - Attestation Attestation: I examined this patient and my medical decision-making was reviewed with the Resident Physician. I agree with the documented findings, disposition and treatment plan as described except to the extent set forth below. 82 year old female prsent to the ED with complaints pnuemoina and comes from shelter and appears to have apsiration pnuenoina on CXR. She is not hypoxic of tachypniec and wears 2LNC at all time per nursing. She states she is havin ga hard time catcing her breath. WE will start IVF and ten admi to medicine
[2018-03-30 19:45] LABS: BUN/Creatinine Ratio 41 (6-26); Blood Urea Nitrogen 33 mg/dL (8-23); Calcium 9.3 mg/dL (8.6-10.3); Carbon Dioxide 33 mEq/L (23-29); Chloride 100 mEq/L (98-107); Glucose 117 mg/dL (70-105); Osmolality,Calculated 298 (280-300); Potassium 4.3 mEq/L (3.5-5.1); Sodium 140 mEq/L (136-145); eGFR For Non-African Americans > 60 (> 60)
[2018-03-30 19:50] LABS: Troponin I 0.05 ng/mL (< 0.04)
[2018-03-30 19:57] LABS: Basophils # 0.1 K/mcL (0.0-0.2); Basophils % 0.5 %; Eosinophils # 0.3 K/mcL (0.0-0.6); Eosinophils % 2.7 %; Hematocrit 28.3 % (35.3-44.9); Hemoglobin 8.2 g/dL (11.5-15.4); Immature Granulocytes % 0.4 % (0-4); Lymphocytes # 1.2 K/mcL (0.6-4.6); Lymphocytes % 11.9 %; Mean Corpuscular Hemoglobin 25.5 pg (28.0-33.3); Mean Corpuscular Volume 88.2 fL (83.0-100.0); Mean Platelet Volume 9.2 fL (9.4-12.4); Monocytes # 0.7 K/mcL (0.0-1.3); Monocytes % 7.3 %; Neutrophils # 7.6 K/mcL (1.6-8.9); Platelet Count 288 K/mcL (140-400); Red Blood Count 3.21 M/mcL (3.82-4.97); Red Cell Distribution Width 18.2 % (11.5-14.5); Segmented Neutrophils % 77.2 %
[2018-03-31] MEDS: Acetaminophen 325 MG TABLET PO PRN (03:08)
[2018-03-31] MEDS ORDERED: Naloxone 0.4 MG/ML INJ IVP PRN (05:59)
[2018-03-31] MEDS ORDERED: Albuterol 2.5 MG/3 ML NEBULIZER IH PRN (05:59)
[2018-03-31] MEDS ORDERED: Nitroglycerin 0.4 MG TAB.SUBL SL PRN (06:02)
--- NOTE | 2018-03-31 06:08 | Internal Med History&Physical ---
Date of Encounter: 03/31/18 Time of Encounter: 05:50 Internal Medicine - H&P: HPI Chief complaint: fever, cough Admitted From: Emergency Dept Plans for Post Hospital Care: Transfer Alf Facility History of present illness: Ms. Rivas is a 82 year old female who presents to the ER with complaints of cough, fever, shortness of breath, and body aches. Symptoms started 2 to 3 days ago and have worsened. She is currently residing in a shelter for rehabilitation, and she requested to be transferred to ER for evaluation. Workup in ER was concerning for pneumonia as well as anemia and positive troponin. She was subsequently admitted to hospitalist service for further workup and care. Upon my assessment of the patient, she has no chest pain. She does confirm the coughing, fever, and shortness of breath history. Unfortunately, I cannot find any EKG. However, ER reported to me that an EKG was performed. She has been in rehabilitation for roughly 1 month. She was recently hospitalized 2 months ago. She has had multiple ill contacts at SNF. She denies any chest pains, vomiting, or diarrhea. She denies any melena or hematochezia. Her biggest complaint was the coughing, fever, and shortness of breath. She is anemic, but she denies any blood loss. She denies specifically any GI bleeding. Past Med Surg Social Fam HX - Past Medical History Attestation: Yes The following information was validated with the patient. Source: patient, old records reviewed Medical history: arthritis, CHF, coronary artery disease, hyperlipidemia, myocardial infarction Additional medical history: "HEART PROBLEMS" Psychiatric history: no psych history - Past Surgical History Surgical History: appendectomy, cholecystectomy, hip replacement, hysterectomy, knee replacement - Social History Smoking Status: Never smoker Smokeless Tobacco Status: No Alcohol use: none Drug use: none Current [facility] situation: [facility] Activity Level: Uses cane/walker Recent Out of Country Travel Within the Last 8 Weeks: No - Family History Mother Adopted: No Family Member Ethnicity: Non- Living Status: Hx Family Cardiac Disorders: Yes Father Adopted: No Family Member Ethnicity: Non- Living Status: Hx Family Cardiac Disorders: Yes Internal Medicine - H&P: Meds Nitroglycerin [Nitrostat] 0.4 mg SL AD PRN 04/28/15 [History] Aspirin 81 mg PO DAILY tab.chew 05/01/15 [Rx] Atorvastatin [Lipitor] 40 mg PO DAILY 01/26/18 [History] Furosemide [Lasix] 20 mg PO DAILY 01/26/18 [History] Isosorbide MONOnitrate (24 HR) [Imdur] 30 mg PO DAILY 01/26/18 [History] Levothyroxine Sodium 25 mcg PO DAILY 01/26/18 [History] Losartan Potassium [Cozaar] 100 mg PO DAILY 01/26/18 [History] Pantoprazole Sodium 40 mg PO DAILY 01/26/18 [History] Allergy/AdvReac Type Severity Reaction Status Date / Time No Known Allergies Allergy Verified 03/30/18 18:38 - Constitutional Constitutional: fever(s), no chills, no night sweats - EENT Eyes: no blurry vision, no change in vision Ears: no ear pain, no tinnitus Nose, mouth and throat: no nasal congestion, no sinus pressure, no sore throat - Cardiovascular Cardiovascular ROS IM: no chest pain, no palpitations, no paroxysmal nocturnal dyspnea, no syncope - Respiratory Respiratory: cough, dyspnea, chest congestion, excessive phlegm production, change in phlegm color, no pain with cough - Gastrointestinal Gastrointestinal: no abdominal pain, no diarrhea, no hematemesis, no hematochezia, no melena, no vomiting - Genitourinary Genitourinary: no dysuria, no flank pain, no hematuria - Musculoskeletal Musculoskeletal ROS IM: no arthralgias, no back pain - Integumentary Integumentary IM: no rash, no jaundice - Neurological Neurological ROS: no dizziness, no focal weakness, no frequent falls, no headache(s) - Psychiatric Psychiatric: no anxiety, no depression - Endocrine Endocrine IM: no polydipsia, no polyuria - Hematologic/Lymphatic Hematologic/Lymphatic: no easy bruising, no lymphadenopathy - Allergic/Immunologic Allergic/Immunologic: wheezing, no GI upset with certain foods - Constitutional Vitals: Temp Pulse Resp BP Pulse Ox 99.0 F 76 15 144/71 94 03/31/18 04:17 03/31/18 04:17 03/31/18 04:17 03/31/18 04:17 03/31/18 04:17 General appearance: Present: cooperative, mild distress, A&O X 3, pleasant, answers questions appropriately Exam: see below - Head Head exam: Present: normal inspection - Eye Eye exam: Present: EOMI, PERRL. Absent: scleral icterus Pupils: Present: normal accommodation - ENT ENT exam: Present: mucous membranes dry, normal exam, normal oropharynx - Neck Neck exam general surgery: Present: full ROM, supple. Absent: tenderness, nuchal rigidity, thyromegaly - Respiratory Respiratory exam: Present: prolonged expiratory phase, rales, rhonchi. Absent: chest wall tenderness, respiratory distress - Cardiovascular Cardiovascular exam: Present: distant heart sounds, RRR, +S1, +S2. Absent: diastolic murmur, systolic murmur - GI/Abdominal GI/Abdominal exam: Present: normal bowel sounds, soft. Absent: hepatomegaly, splenomegaly, tenderness - Extremities Exam Extremities exam: Present: full ROM, warm, radial pulses palpable and symmetrical. Absent: calf tenderness, pedal edema, tenderness - Back Exam Back exam: Absent: CVA tenderness (L), CVA tenderness (R) - Neurological Exam Neurological exam: Present: alert, CN II-XII intact, oriented X3, no focal deficits Additional comments: generalized weakness throughout -- moderate to severe - Psychiatric Psychiatric exam: Present: normal affect, normal mood - Skin Skin exam: Present: dry, intact, warm Internal Med - H&P Results - Labs CBC & Chem 7: 03/30/18 19:30 03/30/18 19:08 Labs: Short CBC 03/30/18 Range/Units 19:30 WBC 9.9 (4.3-11.1) K/mcL Hgb 8.2 L (11.5-15.4) g/dL Hct 28.3 L (35.3-44.9) % Plt Count 288 (140-400) K/mcL Neutrophils # 7.6 (1.6-8.9) K/mcL BMP 03/30/18 19:08 Sodium 140 Potassium 4.3 Chloride 100 Carbon Dioxide 33 H BUN 33 H Creatinine 0.81 Glucose 117 H Calcium 9.3 Cardiac Enzymes 03/30/18 Range/Units 19:08 Troponin I 0.05 H* (< 0.04) ng/mL - Impressions ITS Impressions Chest X-Ray 03/30/18 18:38 IMPRESSION: Dense left lower lobe infiltrate and likely fusion. Pneumonia or aspiration should be considered. D/ / 03/30/2018 19:20:21 Andie Wilson MD / [facility] Interpreting Provider: Andie Wilson MD - Diagnostic Studies Chest x-ray Status: image reviewed by me (LLL infiltrate) - Assessment and plan (1) Pneumonia Current Visit: Yes Status: Acute Assessment and plan: 1. Suspect health care acquired with current SNF living situation and recent hospitalization 2 months ago. 2. Blood cultures obtained. 3. Will order sputum cultures. 4. Will place on Vancomycin and Levaquin. 5. Oxygen and aerosols as needed. 6. Clinical monitoring. Qualifiers: Pneumonia type: due to unspecified organism Laterality: left Lung location: lower lobe of lung Qualified Code(s): J18.1 - Lobar pneumonia, unspecified organism (2) Anemia Current Visit: Yes Status: Chronic Assessment and plan: 1. Will order stool hemoccult. 2. Monitor for blood loss. 3. Will also order iron studies. 4. Transfuse for symptomatic anemia. Qualifiers: Anemia type: unspecified type Qualified Code(s): D64.9 - Anemia, unspecified (3) Elevated troponin Current Visit: Yes Status: Acute Assessment and plan: 1. Will trend troponins and EKG's. 2. Patient denies anginal type symptoms. 3. Consult cardiology if necessary. (4) DVT prophylaxis Current Visit: Yes Status: Acute Assessment and plan: 1. Heparin SQ.
[2018-03-31] MEDS: Ipratropium/Albuterol Neb 3 ML IH SCH ×4 (07:29→19:46)
[2018-03-31 08:24] LABS: Basophils % 0.4 %; Eosinophils % 2.8 %; Immature Granulocytes % 0.4 % (0-4)
[2018-03-31 08:25] LABS: Eosinophils # 0.2 K/mcL (0.0-0.6); Hematocrit 24.8 % (35.3-44.9); Hemoglobin 7.1 g/dL (11.5-15.4); Lymphocytes # 1.2 K/mcL (0.6-4.6); Lymphocytes % 14.4 %; Mean Corpuscular HGB Conc 28.6 g/dL (31.6-35.5); Mean Corpuscular Hemoglobin 25.4 pg (28.0-33.3); Mean Corpuscular Volume 88.6 fL (83.0-100.0); Mean Platelet Volume 9.4 fL (9.4-12.4); Monocytes # 0.6 K/mcL (0.0-1.3); Monocytes % 7.6 %; Neutrophils # 6.1 K/mcL (1.6-8.9); Platelet Count 235 K/mcL (140-400); Red Cell Distribution Width 18.3 % (11.5-14.5); Segmented Neutrophils % 74.4 %
[2018-03-31 08:30] LABS: INR 1.1; Prothrombin Time 12.3 Seconds (9.4-12.1)
[2018-03-31 08:32] LABS: Activated Partial Thrombo Time 28.2 Seconds (26.0-36.0)
[2018-03-31] MEDS: *HR* Heparin 5,000 UNIT/ML VIAL SQ SCH ×2 (08:39→18:02)
[2018-03-31] MEDS: Levothyroxine 25 MCG TABLET PO SCH (08:40)
[2018-03-31 08:44] LABS: Alanine Aminotransferase 7 Units/L (7-52); Albumin 2.7 g/dL (3.5-5.7); Albumin/Globulin Ratio 0.9 (1.1-2.2); Alkaline Phosphatase 59 Units/L (34-104); Aspartate Amino Transferase 13 Units/L (13-39); BUN/Creatinine Ratio 40 (6-26); Bilirubin,Total 0.3 mg/dL (0.3-1.0); Blood Urea Nitrogen 29 mg/dL (8-23); Calcium 9.1 mg/dL (8.6-10.3); Carbon Dioxide 34 mEq/L (23-29); Chloride 104 mEq/L (98-107); Globulin 2.9 g/dL (2.4-3.5); Glucose 97 mg/dL (70-105); Magnesium 2.1 mg/dL (1.6-2.6); Osmolality,Calculated 298 (280-300); Potassium 4.4 mEq/L (3.5-5.1); Sodium 141 mEq/L (136-145); Total Protein 5.6 g/dL (6.4-8.9); eGFR For Non-African Americans > 60 (> 60)
[2018-03-31 08:54] LABS: Anisocytosis 1+ (Not Present); Hypochromasia Present (Not Present); Microcytosis Present (Not Present); Platelet Estimate Normal (Normal)
[2018-03-31] MEDS: traMADol 50 MG TABLET PO PRN (09:01)
[2018-03-31] MEDS: Aspirin 81 MG TAB.CHEW PO SCH (09:01)
[2018-03-31] MEDS: Isosorbide MONOnitrate (24 HR) 30 MG TAB.ER.24H PO SCH (09:01)
[2018-03-31] MEDS: Furosemide 20 MG TABLET PO SCH (09:02)
--- NOTE | 2018-03-31 10:12 | Event Note ---
Date of Encounter: 03/31/18 Time of Encounter: 10:07 82-year-old female seen and examined at the bedside She is admitted and being managed for suspected healthcare associated pneumonia and elevated troponin The patient denies chest pain at the time of evaluation She also has acute on chronic anemia Current hemoglobin 7.1 renal function is stable Fecal occult blood is pending On examination, she is elderly and fragile with severe arthritic joints contracted on her right and left hands, right lower extremity with disuse atrophy left lower extremity larger than right lower extremity with bilateral pitting pedal edema. She is awake, alert and oriented 3. She is not in any form of distress chest with diminished breath sounds bilaterally at the bases heart sounds S1-S2 and regular Plan is to continue current management with antibiotics, follow echocardiogram, no current indication for cardiology evaluation, Suspect GI source of blood loss, follow FOBT and consult gastroenterology when necessary Send type and screen and transfuse for hemoglobin less than 7 or hemodynamic instability.
[2018-03-31] MEDS ORDERED: Levofloxacin 750 MG/150 ML 750 MG/150 ML BAG IVPB SCH (21:00)
[2018-04-01] MEDS: Ipratropium/Albuterol Neb 3 ML IH SCH ×7 (01:00→23:36)
[2018-04-01] MEDS: Acetaminophen 325 MG TABLET PO PRN (02:02)
[2018-04-01] MEDS: Levothyroxine 25 MCG TABLET PO SCH (05:32)
[2018-04-01] MEDS: *HR* Heparin 5,000 UNIT/ML VIAL SQ SCH ×2 (05:36→19:35)
[2018-04-01 05:52] LABS: Basophils # 0.1 K/mcL (0.0-0.2); Basophils % 0.6 %; Mean Platelet Volume 9.4 fL (9.4-12.4); Monocytes # 0.6 K/mcL (0.0-1.3); Monocytes % 7.7 %
[2018-04-01 05:53] LABS: Eosinophils # 0.4 K/mcL (0.0-0.6); Eosinophils % 4.5 %; Hematocrit 24.9 % (35.3-44.9); Hemoglobin 7.1 g/dL (11.5-15.4); Immature Granulocytes % 0.3 % (0-4); Lymphocytes # 1.4 K/mcL (0.6-4.6); Lymphocytes % 17.3 %; Mean Corpuscular HGB Conc 28.5 g/dL (31.6-35.5); Mean Corpuscular Hemoglobin 25.4 pg (28.0-33.3); Mean Corpuscular Volume 89.2 fL (83.0-100.0); Neutrophils # 5.4 K/mcL (1.6-8.9); Platelet Count 238 K/mcL (140-400); Red Blood Count 2.79 M/mcL (3.82-4.97); Segmented Neutrophils % 69.6 %
[2018-04-01 06:06] LABS: BUN/Creatinine Ratio 36 (6-26); Blood Urea Nitrogen 27 mg/dL (8-23); Calcium 9.2 mg/dL (8.6-10.3); Carbon Dioxide 33 mEq/L (23-29); Chloride 102 mEq/L (98-107); Glucose 107 mg/dL (70-105); Osmolality,Calculated 294 (280-300); Potassium 4.3 mEq/L (3.5-5.1); Sodium 139 mEq/L (136-145); eGFR For Non-African Americans > 60 (> 60)
[2018-04-01 06:23] LABS: Anisocytosis 1+ (Not Present); Platelet Estimate Normal (Normal)
[2018-04-01 06:24] LABS: Macrocytosis Present (Not Present); Microcytosis Present (Not Present)
[2018-04-01] MEDS ORDERED: Acetaminophen 325 MG TABLET PO PRN ×2 (08:43→14:12)
[2018-04-01] MEDS: Aspirin 81 MG TAB.CHEW PO SCH (09:44)
[2018-04-01] MEDS: Isosorbide MONOnitrate (24 HR) 30 MG TAB.ER.24H PO SCH (09:44)
[2018-04-01] MEDS: Furosemide 20 MG TABLET PO SCH (09:44)
[2018-04-01] MEDS: Ampicillin/Sulbactam 3,000 MG in 0.9 % Sodium Chloride Mini Bag 100 ML IVPB SCH ×3 (10:08→19:36)
[2018-04-01] MEDS: traMADol 50 MG TABLET PO PRN (10:12)
--- NOTE | 2018-04-01 11:34 | Internal Med Progress Note ---
Hospitalist Progress Note - Encounter Date of Encounter: 04/01/18 Time of Encounter: 11:24 - Subjective Interval History: 82-year-old female seen and examined at the bedside She is admitted and being managed for suspected healthcare associated pneumonia and elevated troponin The patient denies chest pain at the time of evaluation She also has acute on chronic anemia Current hemoglobin 7.1 renal function is stable Fecal occult blood is pending CXR reviewed-will add unasyn for anerobic coverage - Exam Vitals: Temp Pulse Resp BP Pulse Ox 99.0 F 81 20 132/78 100 04/01/18 11:10 04/01/18 11:10 04/01/18 11:10 04/01/18 11:10 04/01/18 11:10 Exam: On examination, she is elderly and fragile with severe arthritic joints contracted on her right and left hands, right lower extremity with disuse atrophy left lower extremity larger than right lower extremity with bilateral pitting pedal edema. She is awake, alert and oriented 3. She is not in any form of distress chest with diminished breath sounds bilaterally at the bases heart sounds S1-S2 and regular - Assessment and Plan (1) Elevated troponin Current Visit: Yes Status: Acute Assessment and Plan: Trop 0.04-0.05 in the setting of PNA Adynamic EKG unremarkable patient is without chest pain (2) Anemia Current Visit: Yes Status: Chronic Assessment and Plan: Acute on chronic Follow anemia work up FOBT pending Baseline Hb 9-10 Presented with Hb of 7.1 Transfuse for Hb <7 or hemodynamic instability (3) DVT prophylaxis Current Visit: Yes Status: Acute Assessment and Plan: SQ heparin No verified source of bleeding (4) Pneumonia Current Visit: Yes Status: Acute Assessment and Plan: Suspect health care acquired with current SNF living situation and recent hospitalization 2 months ago. Blood cultures prelim no growth Patient is not making sputum Continue Vancomycin and Levaquin-Day 2 Add Unasyn for likely aspiration-day 1 Continue O2 support (5) Arthritis Current Visit: Yes Status: Chronic Assessment and Plan: chronic, contracted multiple joints Continue care, fall precautions (6) CAD (coronary artery disease) Current Visit: Yes Status: Chronic Assessment and Plan: Continue home meds (7) HLD (hyperlipidemia) Current Visit: Yes Status: Chronic Assessment and Plan: continue home meds (8) HTN (hypertension) Current Visit: Yes Status: Chronic Assessment and Plan: continue home meds (9) Thyroid disease Current Visit: Yes Status: Chronic Assessment and Plan: continue home meds - Time Spent with Patient Total time spent is greater than 50% in coordination of care (as documented) at patient's floor/unit and/or counseling patient: Plan of Care Discussed with: patient Internal Medicine: Result - Labs CBC & Chem 7: 04/01/18 05:22 04/01/18 05:22 Labs: Short CBC 04/01/18 Range/Units 05:22 WBC 7.8 (4.3-11.1) K/mcL Hgb 7.1 L (11.5-15.4) g/dL Hct 24.9 L (35.3-44.9) % Plt Count 238 (140-400) K/mcL Neutrophils # 5.4 (1.6-8.9) K/mcL BMP 04/01/18 05:22 Sodium 139 Potassium 4.3 Chloride 102 Carbon Dioxide 33 H BUN 27 H Creatinine 0.75 Glucose 107 H Calcium 9.2 Cardiac Enzymes 03/31/18 03/31/18 Range/Units 12:41 18:09 Troponin I 0.05 H* 0.04 H* (< 0.04) ng/mL - ABG Interpretation ABG results: PT/INR, D-dimer PT 12.3 Seconds (9.4-12.1) H 03/31/18 08:15 Consult Discharge Plan - Plan Referrals: NONE,PCP [Primary Care Provider] - (2) Anemia Qualifiers: Anemia type: unspecified type Qualified Code(s): D64.9 - Anemia, unspecified (4) Pneumonia Qualifiers: Pneumonia type: due to unspecified organism Laterality: left Lung location: lower lobe of lung Qualified Code(s): J18.1 - Lobar pneumonia, unspecified organism (6) CAD (coronary artery disease) Qualifiers: Coronary Disease-Associated Artery/Lesion type: unspecified vessel or lesion type [place] vs. transplanted heart: [place] heart Associated angina: with stable angina Qualified Code(s): I25.118 - Atherosclerotic heart disease of [place] coronary artery with other forms of angina pectoris (7) HLD (hyperlipidemia) Qualifiers: Hyperlipidemia type: pure hypercholesterolemia Qualified Code(s): E78.00 - Pure hypercholesterolemia, unspecified; E78.0 - Pure hypercholesterolemia (8) HTN (hypertension) Qualifiers: Hypertension type: essential hypertension Qualified Code(s): I10 - Essential (primary) hypertension
[2018-04-01] MEDS ORDERED: Ampicillin/Sulbactam 1,500 MG in 0.9 % Sodium Chloride Mini Bag 100 ML IVPB SCH (12:00)
[2018-04-01] MEDS ORDERED: MOM Conc 10 ML UD.LIQ PO PRN (14:12)
[2018-04-01] MEDS ORDERED: Hydrocortisone Rectal 2.5% CRM 28 GM TUBE RC PRN (14:12)
[2018-04-01] MEDS ORDERED: traMADol 50 MG TABLET PO PRN (14:12)
[2018-04-01] MEDS ORDERED: Levofloxacin 750 MG/150 ML 750 MG/150 ML BAG IVPB SCH (20:00)
[2018-04-01] MEDS: Sennosides/Docusate Sodium TABLET PO SCH (21:01)
[2018-04-02] MEDS: traMADol 50 MG TABLET PO PRN ×2 (00:03→22:53)
[2018-04-02] MEDS: Ampicillin/Sulbactam 3,000 MG in 0.9 % Sodium Chloride Mini Bag 100 ML IVPB SCH ×4 (00:03→18:23)
[2018-04-02] MEDS: Ipratropium/Albuterol Neb 3 ML IH SCH ×6 (04:16→23:22)
[2018-04-02] MEDS: Levothyroxine 25 MCG TABLET PO SCH (05:49)
[2018-04-02] MEDS: *HR* Heparin 5,000 UNIT/ML VIAL SQ SCH ×2 (05:49→18:23)
[2018-04-02 06:19] LABS: Immature Granulocytes % 0.4 % (0-4); Mean Platelet Volume 9.2 fL (9.4-12.4)
[2018-04-02 06:21] LABS: Basophils % 0.5 %; Eosinophils # 0.5 K/mcL (0.0-0.6); Eosinophils % 5.5 %; Hematocrit 27.4 % (35.3-44.9); Hemoglobin 7.5 g/dL (11.5-15.4); Lymphocytes # 0.9 K/mcL (0.6-4.6); Lymphocytes % 10.2 %; Mean Corpuscular HGB Conc 27.4 g/dL (31.6-35.5); Mean Corpuscular Hemoglobin 24.8 pg (28.0-33.3); Mean Corpuscular Volume 90.7 fL (83.0-100.0); Monocytes # 0.8 K/mcL (0.0-1.3); Monocytes % 9.5 %; Platelet Count 243 K/mcL (140-400); Red Blood Count 3.02 M/mcL (3.82-4.97); Red Cell Distribution Width 17.8 % (11.5-14.5); Segmented Neutrophils % 73.9 %
[2018-04-02 06:22] LABS: Neutrophils # 6.1 K/mcL (1.6-8.9)
[2018-04-02 06:39] LABS: Hypochromasia Present (Not Present); Platelet Estimate Normal (Normal)
[2018-04-02 06:53] LABS: % Iron Saturation 5 % (15-50); BUN/Creatinine Ratio 33 (6-26); Blood Urea Nitrogen 28 mg/dL (8-23); Calcium 9.4 mg/dL (8.6-10.3); Carbon Dioxide 34 mEq/L (23-29); Chloride 101 mEq/L (98-107); Glucose 106 mg/dL (70-105); Iron 18 mcg/dL (50-170); Osmolality,Calculated 294 (280-300); Potassium 4.4 mEq/L (3.5-5.1); Sodium 139 mEq/L (136-145); Transferrin 266 mg/dL (203-362); eGFR For Non-African Americans > 60 (> 60)
[2018-04-02 07:18] LABS: Folate 15.6 ng/mL (3.0-16.0)
[2018-04-02] MEDS ORDERED: Aminoglycoside Consult 1 EACH MC ONE (07:46)
[2018-04-02] MEDS: Isosorbide MONOnitrate (24 HR) 30 MG TAB.ER.24H PO SCH (10:03)
[2018-04-02] MEDS: Aspirin 81 MG TAB.CHEW PO SCH (10:03)
[2018-04-02] MEDS: Sennosides/Docusate Sodium TABLET PO SCH ×2 (10:03→20:35)
[2018-04-02] MEDS: Furosemide 20 MG TABLET PO SCH (10:03)
--- NOTE | 2018-04-02 19:04 | Internal Med Progress Note ---
Hospitalist Progress Note - Encounter Date of Encounter: 04/02/18 Time of Encounter: 11:00 - Subjective Interval History: Patient still requiring 2 L of supplemental oxygenation this morning secondary to hypoxic respiratory failure. Continuing IV antibiotics for aspiration healthcare acquired pneumonia - Exam Vitals: Temp Pulse Resp BP Pulse Ox 99.8 F H 70 16 122/60 98 04/02/18 15:35 04/02/18 15:35 04/02/18 16:13 04/02/18 15:35 04/02/18 16:13 Exam: Gen.: Nonacute distress, alert and oriented 3 ENT: Mucosal membranes moist Respiratory: Lungs are clear to auscultation bilaterally without any wheezing rhonchi or rales Cardiovascular: Normal S1 and S2 regular rate rhythm no murmurs rubs or gallops Abdomen: Soft, nontender and nondistended with positive bowel sounds Extremities: No lower extremity edema Skin: Normal color - Assessment and Plan (1) Pneumonia Current Visit: Yes Status: Acute Assessment and Plan: Blood cultures prelim no growth Patient is not making sputum Continue Vancomycin, Levaquin-Day 3 and Unasyn for likely aspiration-day 2 Continue O2 support (2) HTN (hypertension) Current Visit: Yes Status: Chronic Assessment and Plan: continue home meds (3) Elevated troponin Current Visit: Yes Status: Acute Assessment and Plan: Trop 0.04-0.05 in the setting of PNA Adynamic EKG unremarkable patient is without chest pain (4) CAD (coronary artery disease) Current Visit: Yes Status: Chronic Assessment and Plan: Continue home meds (5) Anemia Current Visit: Yes Status: Chronic Assessment and Plan: Acute on chronic Follow anemia work up FOBT pending Baseline Hb 9-10 Presented with Hb of 7.1 and his 7.5 this morning Transfuse for Hb <7 or hemodynamic instability (6) HLD (hyperlipidemia) Current Visit: Yes Status: Chronic Assessment and Plan: continue home meds (7) Arthritis Current Visit: Yes Status: Chronic Assessment and Plan: chronic, contracted multiple joints Continue care, fall precautions (8) Thyroid disease Current Visit: Yes Status: Chronic Assessment and Plan: continue home meds (9) DVT prophylaxis Current Visit: Yes Status: Acute Assessment and Plan: SQ heparin No verified source of bleeding - Time Spent with Patient Total time spent is greater than 50% in coordination of care (as documented) at patient's floor/unit and/or counseling patient: Internal Medicine: Result - Labs CBC & Chem 7: 04/02/18 05:30 04/02/18 05:30 Labs: Short CBC 04/02/18 Range/Units 05:30 WBC 8.3 (4.3-11.1) K/mcL Hgb 7.5 L (11.5-15.4) g/dL Hct 27.4 L (35.3-44.9) % Plt Count 243 (140-400) K/mcL Neutrophils # 6.1 (1.6-8.9) K/mcL BMP 04/02/18 05:30 Sodium 139 Potassium 4.4 Chloride 101 Carbon Dioxide 34 H BUN 28 H Creatinine 0.84 Glucose 106 H Calcium 9.4 - ABG Interpretation ABG results: PT/INR, D-dimer PT 12.3 Seconds (9.4-12.1) H 03/31/18 08:15 Consult Discharge Plan - Plan Referrals: NONE,PCP [Primary Care Provider] - (1) Pneumonia Qualifiers: Pneumonia type: due to unspecified organism Laterality: left Lung location: lower lobe of lung Qualified Code(s): J18.1 - Lobar pneumonia, unspecified organism (2) HTN (hypertension) Qualifiers: Hypertension type: essential hypertension Qualified Code(s): I10 - Essential (primary) hypertension (4) CAD (coronary artery disease) Qualifiers: Coronary Disease-Associated Artery/Lesion type: unspecified vessel or lesion type [place] vs. transplanted heart: [place] heart Associated angina: with stable angina Qualified Code(s): I25.118 - Atherosclerotic heart disease of [place] coronary artery with other forms of angina pectoris (5) Anemia Qualifiers: Anemia type: unspecified type Qualified Code(s): D64.9 - Anemia, unspecified (6) HLD (hyperlipidemia) Qualifiers: Hyperlipidemia type: pure hypercholesterolemia Qualified Code(s): E78.00 - Pure hypercholesterolemia, unspecified; E78.0 - Pure hypercholesterolemia
[2018-04-03] MEDS: Ampicillin/Sulbactam 3,000 MG in 0.9 % Sodium Chloride Mini Bag 100 ML IVPB SCH ×3 (00:01→11:19)
[2018-04-03] MEDS: Ipratropium/Albuterol Neb 3 ML IH SCH ×5 (04:22→21:38)
[2018-04-03] MEDS: *HR* Heparin 5,000 UNIT/ML VIAL SQ SCH ×2 (05:52→18:30)
[2018-04-03] MEDS: Levothyroxine 25 MCG TABLET PO SCH (05:52)
[2018-04-03] MEDS: Aspirin 81 MG TAB.CHEW PO SCH (07:56)
[2018-04-03] MEDS: Furosemide 20 MG TABLET PO SCH (07:56)
[2018-04-03] MEDS: Sennosides/Docusate Sodium TABLET PO SCH (07:56)
[2018-04-03] MEDS: Isosorbide MONOnitrate (24 HR) 30 MG TAB.ER.24H PO SCH (07:57)
[2018-04-03 10:51] LABS: Red Cell Distribution Width 17.8 % (11.5-14.5)
[2018-04-03 10:53] LABS: Basophils % 0.5 %; Eosinophils # 0.4 K/mcL (0.0-0.6); Eosinophils % 4.3 %; Hematocrit 26.9 % (35.3-44.9); Hemoglobin 7.6 g/dL (11.5-15.4); Immature Granulocytes % 0.5 % (0-4); Lymphocytes # 0.9 K/mcL (0.6-4.6); Lymphocytes % 10.6 %; Mean Corpuscular HGB Conc 28.3 g/dL (31.6-35.5); Mean Corpuscular Hemoglobin 24.9 pg (28.0-33.3); Mean Corpuscular Volume 88.2 fL (83.0-100.0); Mean Platelet Volume 9.3 fL (9.4-12.4); Monocytes # 0.7 K/mcL (0.0-1.3); Monocytes % 7.5 %; Platelet Count 245 K/mcL (140-400); Red Blood Count 3.05 M/mcL (3.82-4.97); Segmented Neutrophils % 76.6 %
[2018-04-03 10:57] LABS: BUN/Creatinine Ratio 30 (6-26); Blood Urea Nitrogen 23 mg/dL (8-23); Calcium 9.3 mg/dL (8.6-10.3); Carbon Dioxide 33 mEq/L (23-29); Chloride 99 mEq/L (98-107); Glucose 129 mg/dL (70-105); Neutrophils # 6.7 K/mcL (1.6-8.9); Osmolality,Calculated 297 (280-300); Potassium 3.6 mEq/L (3.5-5.1); Sodium 141 mEq/L (136-145); eGFR For Non-African Americans > 60 (> 60)
[2018-04-03 11:24] LABS: Anisocytosis 1+ (Not Present); Hypochromasia Present (Not Present)
[2018-04-03 11:25] LABS: Platelet Estimate Normal (Normal)
[2018-04-03 11:26] LABS: Ovalocytes 1+ (Not Present)
--- NOTE | 2018-04-03 14:52 | Physician Discharge Referral ---
ExtendedCare Referral Info Institutional Level of Care: Skilled - Diagnosis (1) Pneumonia Status: Acute (2) HTN (hypertension) Status: Chronic (3) Elevated troponin Status: Acute (4) CAD (coronary artery disease) Status: Chronic (5) Anemia Status: Chronic (6) HLD (hyperlipidemia) Status: Chronic (7) Arthritis Status: Chronic (8) Thyroid disease Status: Chronic (9) DVT prophylaxis Status: Acute - Transfer Medications Prescriptions: Amoxicillin/Clavulanate [Augmentin] 875 mg PO BIDWM 4 Days #8 tablet Levofloxacin [Levaquin] 750 mg PO DAILY 2 Days #2 tablet Tramadol HCl [Ultram] 100 mg PO Q6H PRN 2 Days #8 tablet PRN Reason: Mild To Moderate Pain Home Medications: Nitroglycerin [Nitrostat] 0.4 mg SL AD PRN 04/28/15 [History] Aspirin 81 mg PO DAILY tab.chew 05/01/15 [Rx] Atorvastatin [Lipitor] 40 mg PO HS 01/26/18 [History] Furosemide [Lasix] 20 mg PO DAILY 01/26/18 [History] Isosorbide MONOnitrate (24 HR) [Imdur] 30 mg PO DAILY 01/26/18 [History] Levothyroxine Sodium 25 mcg PO DAILY 01/26/18 [History] Losartan Potassium [Cozaar] 100 mg PO DAILY 01/26/18 [History] Pantoprazole Sodium 40 mg PO DAILY 01/26/18 [History] Acetaminophen [Tylenol] 650 mg PO Q4H PRN 03/31/18 [History] Hydrocortisone [Proctosol-Hc] 1 appl RC TID PRN 03/31/18 [History] Magnesium Hydroxide [Milk of Magnesia] 30 ml PO DAILY PRN 03/31/18 [History] Meloxicam [Mobic] 7.5 mg PO DAILY 03/31/18 [History] Metoprolol [Lopressor] 12.5 mg PO BID 03/31/18 [History] Sennosides/Docusate Sodium [Senna-S Laxative Tablet] 1 tab PO BID 03/31/18 [History] Amoxicillin/Clavulanate [Augmentin] 875 mg PO BIDWM 4 Days #8 tablet 04/03/18 [Rx] Levofloxacin [Levaquin] 750 mg PO DAILY 2 Days #2 tablet 04/03/18 [Rx] Tramadol HCl [Ultram] 100 mg PO Q6H PRN 2 Days #8 tablet 04/03/18 [Rx] Allergies/Adverse Reactions: Allergy/AdvReac Type Severity Reaction Status Date / Time No Known Allergies Allergy Verified 03/31/18 10:59 - Respiratory Orders Smoking Cessation: Smoking cessation has been advised. For more information, call the [place] Tobacco Quit Line at 6-491-IGHB-NOW. CERTIFICATION: I certify that the transfer of the above named patient to an Extended Care Facility is necessary for the continuing treatment of the diagnosis listed. The above information is true and accurate reflection of patient's current condition. Confidential - Redisclosure prohibited without a patient's written consent.
--- NOTE | 2018-04-03 14:52 | Discharge Summary ---
- NOTES TO OUTPATIENT PROVIDER Notes to Outpatient Provider: none Orders not resulted at time of discharge: Pending orders 03/30/18 19:44 Culture,Blood [BC] Stat 03/31/18 05:59 Fecal Hemoccult [Occult Blood,Stool] [BF] Routine Date of Encounter: 04/03/18 Time of Encounter: 11:00 - Discharge Diagnosis (1) Pneumonia Priority: Primary Status: Acute Qualifiers: Pneumonia type: due to unspecified organism Laterality: left Lung location: lower lobe of lung Qualified Code(s): J18.1 - Lobar pneumonia, unspecified organism (2) HTN (hypertension) Priority: Secondary Status: Chronic Qualifiers: Hypertension type: essential hypertension Qualified Code(s): I10 - Essential (primary) hypertension (3) Elevated troponin Priority: Secondary Status: Acute (4) CAD (coronary artery disease) Priority: Secondary Status: Chronic Qualifiers: Coronary Disease-Associated Artery/Lesion type: unspecified vessel or lesion type [place] vs. transplanted heart: [place] heart Associated angina: with stable angina Qualified Code(s): I25.118 - Atherosclerotic heart disease of [place] coronary artery with other forms of angina pectoris (5) Anemia Priority: Secondary Status: Chronic Qualifiers: Anemia type: unspecified type Qualified Code(s): D64.9 - Anemia, unspecified (6) HLD (hyperlipidemia) Priority: Secondary Status: Chronic Qualifiers: Hyperlipidemia type: pure hypercholesterolemia Qualified Code(s): E78.00 - Pure hypercholesterolemia, unspecified; E78.0 - Pure hypercholesterolemia (7) Arthritis Priority: Secondary Status: Chronic (8) Thyroid disease Priority: Secondary Status: Chronic Hospital course: Patient is an 82-year-old female with past medical history significant for ischemic cardiomyopathy who presents to the ER on 04/01/18 due to shortness of breath. Report of her symptoms gradually getting worse approximately 2-3 days prior to admission and was sent in by [facility] for further evaluation. In the ER, x-ray showed left lower lobe infiltrate concerning for pneumonia/aspiration. She was admitted to medical surgical floor for treatment of healthcare acquired pneumonia in addition to urinary tract infection. Patients hospital stay her shortness of breath resolved on IV Unasyn and doxycycline. She was medically stable to be discharged back to the [facility] to complete a 4 day course of Unasyn and 3 day course of doxycycline. - Time Spent with Patient Total time spent providing and/or coordinating discharge services: Less than 30 minutes - Discharge Medications Prescriptions: Amoxicillin/Clavulanate [Augmentin] 875 mg PO BIDWM 4 Days #8 tablet Levofloxacin [Levaquin] 750 mg PO DAILY 2 Days #2 tablet Tramadol HCl [Ultram] 100 mg PO Q6H PRN 2 Days #8 tablet PRN Reason: Mild To Moderate Pain Home Medications: Nitroglycerin [Nitrostat] 0.4 mg SL AD PRN 04/28/15 [History] Aspirin 81 mg PO DAILY tab.chew 05/01/15 [Rx] Atorvastatin [Lipitor] 40 mg PO HS 01/26/18 [History] Furosemide [Lasix] 20 mg PO DAILY 01/26/18 [History] Isosorbide MONOnitrate (24 HR) [Imdur] 30 mg PO DAILY 01/26/18 [History] Levothyroxine Sodium 25 mcg PO DAILY 01/26/18 [History] Losartan Potassium [Cozaar] 100 mg PO DAILY 01/26/18 [History] Pantoprazole Sodium 40 mg PO DAILY 01/26/18 [History] Acetaminophen [Tylenol] 650 mg PO Q4H PRN 03/31/18 [History] Hydrocortisone [Proctosol-Hc] 1 appl RC TID PRN 03/31/18 [History] Magnesium Hydroxide [Milk of Magnesia] 30 ml PO DAILY PRN 03/31/18 [History] Meloxicam [Mobic] 7.5 mg PO DAILY 03/31/18 [History] Metoprolol [Lopressor] 12.5 mg PO BID 03/31/18 [History] Sennosides/Docusate Sodium [Senna-S Laxative Tablet] 1 tab PO BID 03/31/18 [History] Amoxicillin/Clavulanate [Augmentin] 875 mg PO BIDWM 4 Days #8 tablet 04/03/18 [Rx] Levofloxacin [Levaquin] 750 mg PO DAILY 2 Days #2 tablet 04/03/18 [Rx] Tramadol HCl [Ultram] 100 mg PO Q6H PRN 2 Days #8 tablet 04/03/18 [Rx] Allergies/Adverse Reactions: Allergy/AdvReac Type Severity Reaction Status Date / Time No Known Allergies Allergy Verified 03/31/18 10:59 Date of admission: 04/01/18 15:02 Primary care physician: PCP NONE Consults: 04/01/18 09:54 Consult to Filteration Operator [CONS] Routine Reason for Consult: return to [place] - Constitutional Vitals: Temp Pulse Resp BP Pulse Ox 99.2 F 72 18 116/60 96 04/03/18 11:11 04/03/18 11:11 04/03/18 11:14 04/03/18 11:11 04/03/18 11:14 General appearance: Present: cooperative, mild distress, A&O X 3, pleasant, answers questions appropriately Exam: Gen.: Nonacute distress, alert and oriented 3 ENT: Mucosal membranes moist Respiratory: Lungs are clear to auscultation bilaterally without any wheezing rhonchi or rales Cardiovascular: Normal S1 and S2 regular rate rhythm no murmurs rubs or gallops Abdomen: Soft, nontender and nondistended with positive bowel sounds Extremities: No lower extremity edema Skin: Normal color - Patient Status Disposition: Transfer SNF Condition: Good - Discharge Instructions Instructions: Community-acquired Pneumonia (GEN), Pressure Ulcer (GEN), Weakness (GEN) Follow Up With: NONE,PCP [Primary Care Provider] -
[2018-04-03 16:21] VITALS: BP 119/61
--- NOTE | 2018-04-03 22:09 | Electrocardiograph Report ---
[address] [place], [place] [address] Test Date: 2018-03-30 Pat Name: Iman Rivas Department: EXAMC1 Room: 2A42 Gender: F [employer]quet Set Up Person: : 1935 Requested By: Washington Gonzales Order Number: [id number] Reading MD: Padmini Bobby Measurements Intervals [place] Rate: 77 P: 45 SD: 134 QRS: -43 QRSD: 84 T: 74 QT: 353 QTc: 400 Interpretive Statements Sinus rhythm Left anterior fascicular block Probable anteroseptal infarct, old Electronically Signed On 04-03-2018 22:07:32 EDT by Padmini Bobby
== END 2018-04-03 18:15 | DRG 177 ==
LOC: 2ANU 18:29 → EMEROOARM 18:29 → SUATTDRO 20:26 → 2ANU 21:06 → SUATTDRO 04-01 15:02
PROVIDERS: ADMIT Pediatrics; ATTEND Hospitalist